=== PATIENT | male | born 1975 | race Caucasian/White ===

== ENCOUNTER 2019-04-29 07:57 | Emergency (ER) | payer BC ==
[2019-04-29] MEDS ORDERED: Sodium Chloride 0.9% 10 ML Syringe FLUSH PRN (08:05)
[2019-04-29] MEDS ORDERED: Sodium Chloride 0.9% 2.5 ML Syringe FLUSH PRN (08:05)
--- NOTE | 2019-04-29 08:10 | EDM.PDOC ---
ED HPI GENERAL MEDICAL PROBLEM - General Chief Complaint: Chest Pain Stated Complaint: UPPER RT SIDE HURTS Time Seen by Provider: 04/29/19 08:04 - History of Present Illness INITIAL COMMENTS - FREE TEXT/NARRATIVE: HISTORY AND PHYSICAL: History of present illness: Patient's 43-year-old male with history of hypercoagulable syndrome form of hyper fibrinogenemia who was first diagnosed when he had a CVA at age 18 he states he has subsequently had a pulmonary embolism although the details of this is her very vague was reported to occur approximately in 2010. Patient is compliant with his medications does include Coumadin. He presents today with concern of right-sided pleuritic chest pain he states is his lower right chest worse with deep inspiration he denies palpitations nausea vomiting diaphoresis or other complaints Review of systems: As per history of present illness and below otherwise all systems reviewed and negative. Past medical history: As per history of present illness and as reviewed below otherwise noncontributory. Surgical history: As per history of present illness and as reviewed below otherwise noncontributory. Social history: No reported history of drug or alcohol abuse. Family history: As per history of present illness and as reviewed below otherwise noncontributory. Physical exam: HEENT: Atraumatic, normocephalic, pupils reactive, negative for conjunctival pallor or scleral icterus, mucous membranes moist, throat clear, neck supple, nontender, trachea midline. Lungs: Clear to auscultation, breath sounds equal bilaterally, chest nontender. Heart: S1S2, regular, negative for clicks, rubs, or JVD. Abdomen: Soft, nondistended, nontender. Negative for masses or hepatosplenomegaly. Negative for costovertebral tenderness. Pelvis: Stable nontender. Genitourinary: Deferred. Rectal: Deferred. Extremities: Atraumatic, negative for cords or calf pain. Neurovascular unremarkable. Neuro: Awake, alert, oriented. Cranial nerves II through XII unremarkable. Cerebellum unremarkable. Motor and sensory unremarkable throughout. Exam nonfocal. Diagnostics: CBC CMP BNP troponin PT/INR EKG CTA chest Therapeutics: Saline 1 L bolus Impression: #1 history of coagulopathy #2 right sided pleuritic chest pain Definitive disposition and diagnosis as appropriate pending reevaluation and review of above. Right Lower Chest Pain Score (Numeric/FACES): 7 - Related Data Allergies Allergy/AdvReac Type Severity Reaction Status Date / Time No Known Allergies Allergy Verified 04/29/19 08:03 Home Meds: Home Meds Lacosamide [Vimpat] 100 mg PO DAILY 04/29/19 [History] Warfarin [Coumadin] 10 mg PO DAILY 04/29/19 [History] ED ROS GENERAL - Review of Systems Review Of Systems: ROS reveals no pertinent complaints other than HPI. ED EXAM, GENERAL - Physical Exam Exam: See Below (See dictation) Course - Vital Signs Text/Narrative:: Patient's emergency room records is been unremarkable he remains without cough fever shortness of breath or any other concern CT angiogram was negative for pulmonary embolism there was some ground glass consistent with possible chronic interstitial issues versus pulmonary edema/infection BNP was normal white count was normal and is now clinical statement for infection. THIS was discussed with patient will follow with his primary doctor Last Recorded V/S: Last Vital Signs Temp 36.5 C 04/29/19 08:01 Pulse 89 04/29/19 10:52 Resp 18 04/29/19 10:52 BP 124/78 04/29/19 09:25 Pulse Ox 92 L 04/29/19 10:52 - Orders/Labs/Meds Orders: Active Orders 24 hr Category Date Time Status Cardiac Monitoring [RC] . DIRECTED Care 04/29/19 08:04 Active EKG Documentation Completion [RC] STAT Care 04/29/19 08:04 Active Pulse Oximetry [RC] ASDIRECTED Care 04/29/19 08:04 Active Sodium Chloride 0.9% [Normal Saline] 1,000 ml Med 04/29/19 08:15 Active IV STAT Sodium Chloride 0.9% [Saline Flush] Med 04/29/19 08:05 Active 10 ml FLUSH ASDIRECTED PRN Sodium Chloride 0.9% [Saline Flush] Med 04/29/19 08:05 Active 2.5 ml FLUSH ASDIRECTED PRN Saline Lock Insert [OM.PC] Stat Oth 04/29/19 08:04 Ordered Medication Orders Sodium Chloride (Normal Saline) 1,000 mls @ 125 mls/hr IV STAT LAZARO Last Admin: 04/29/19 08:31 Dose: 125 mls/hr Sodium Chloride (Saline Flush) 10 ml FLUSH ASDIRECTED PRN PRN Reason: Keep Vein Open Last Admin: 04/29/19 08:32 Dose: 10 ml Sodium Chloride (Saline Flush) 2.5 ml FLUSH ASDIRECTED PRN PRN Reason: Keep Vein Open Last Admin: 04/29/19 08:32 Dose: 2.5 ml Labs: Laboratory Tests 04/29/19 04/29/19 04/29/19 Range/Units 08:14 08:14 08:14 WBC 7.10 (4.0-11.0) K/uL RBC 5.78 (4.50-5.90) M/uL Hgb 16.7 (13.0-17.0) g/dL Hct 48.9 (38.0-50.0) % MCV 84.6 (80.0-98.0) fL MCH 28.9 (27.0-32.0) pg MCHC 34.2 (31.0-37.0) g/dL RDW Std Deviation 40.4 (28.0-62.0) fl RDW Coeff of Chante 13 (11.0-15.0) % Plt Count 178 (150-400) K/uL MPV 10.50 (7.40-12.00) fL Neut % (Auto) 64.4 (48.0-80.0) % Lymph % (Auto) 29.3 (16.0-40.0) % [facility] % (Auto) 4.6 (0.0-15.0) % Eos % (Auto) 1.1 (0.0-7.0) % Baso % (Auto) 0.6 (0.0-1.5) % Neut # (Auto) 4.6 (1.4-5.7) K/uL Lymph # (Auto) 2.1 (0.6-2.4) K/uL [facility] # (Auto) 0.3 (0.0-0.8) K/uL Eos # (Auto) 0.1 (0.0-0.7) K/uL Baso # (Auto) 0.0 (0.0-0.1) K/uL Nucleated RBC % 0.0 /100WBC Nucleated RBCs # 0 K/uL INR 2.94 Sodium 138 (136-148) mmol/L Potassium 4.1 (3.5-5.1) mmol/L Chloride 105 (98-107) mmol/L Carbon Dioxide 23.7 (21.0-32.0) mmol/L BUN 15 (7.0-18.0) mg/dL Creatinine 1.1 (0.8-1.3) mg/dL Est Cr Clr Drug Dosing 102.42 mL/min Estimated GFR (MDRD) > 60.0 ml/min Glucose 151 H (74-106) mg/dL Calcium 8.7 (8.5-10.1) mg/dL Total Bilirubin 1.1 H (0.2-1.0) mg/dL AST 26 (15-37) IU/L ALT 35 (14-63) IU/L Alkaline Phosphatase 92 (46-116) U/L Troponin I < 0.050 (0.000-0.056) ng/mL B-Natriuretic Peptide (<100) PG/ML Total Protein 7.0 (6.4-8.2) g/dL Albumin 3.3 L (3.4-5.0) g/dL Globulin 3.7 (2.6-4.0) g/dL Albumin/Globulin Ratio 0.9 (0.9-1.6) 04/29/19 Range/Units 08:14 WBC (4.0-11.0) K/uL RBC (4.50-5.90) M/uL Hgb (13.0-17.0) g/dL Hct (38.0-50.0) % MCV (80.0-98.0) fL MCH (27.0-32.0) pg MCHC (31.0-37.0) g/dL RDW Std Deviation (28.0-62.0) fl RDW Coeff of Chante (11.0-15.0) % Plt Count (150-400) K/uL MPV (7.40-12.00) fL Neut % (Auto) (48.0-80.0) % Lymph % (Auto) (16.0-40.0) % [facility] % (Auto) (0.0-15.0) % Eos % (Auto) (0.0-7.0) % Baso % (Auto) (0.0-1.5) % Neut # (Auto) (1.4-5.7) K/uL Lymph # (Auto) (0.6-2.4) K/uL [facility] # (Auto) (0.0-0.8) K/uL Eos # (Auto) (0.0-0.7) K/uL Baso # (Auto) (0.0-0.1) K/uL Nucleated RBC % /100WBC Nucleated RBCs # K/uL INR Sodium (136-148) mmol/L Potassium (3.5-5.1) mmol/L Chloride (98-107) mmol/L Carbon Dioxide (21.0-32.0) mmol/L BUN (7.0-18.0) mg/dL Creatinine (0.8-1.3) mg/dL Est Cr Clr Drug Dosing mL/min Estimated GFR (MDRD) ml/min Glucose (74-106) mg/dL Calcium (8.5-10.1) mg/dL Total Bilirubin (0.2-1.0) mg/dL AST (15-37) IU/L ALT (14-63) IU/L Alkaline Phosphatase (46-116) U/L Troponin I (0.000-0.056) ng/mL B-Natriuretic Peptide 12 (<100) PG/ML Total Protein (6.4-8.2) g/dL Albumin (3.4-5.0) g/dL Globulin (2.6-4.0) g/dL Albumin/Globulin Ratio (0.9-1.6) Meds: Medications Generic Name Dose Route Start Last Admin Trade Name Freq PRN Reason Stop Dose Admin Sodium Chloride 1,000 mls @ 125 mls/hr 04/29/19 08:15 04/29/19 08:31 Normal Saline IV 125 mls/hr STAT LAZARO Administration Sodium Chloride 10 ml 04/29/19 08:05 04/29/19 08:32 Saline Flush FLUSH 10 ml ASDIRECTED PRN Administration Keep Vein Open Sodium Chloride 2.5 ml 04/29/19 08:05 04/29/19 08:32 Saline Flush FLUSH 2.5 ml ASDIRECTED PRN Administration Keep Vein Open Discontinued Medications Generic Name Dose Route Start Last Admin Trade Name Freq PRN Reason Stop Dose Admin Iopamidol 50 ml 04/29/19 09:22 04/29/19 09:25 Isovue Multipack-370 (76%) IVPUSH 04/29/19 09:23 50 ml ONETIME STA Administration Departure - Departure Time of Disposition: 11:03 Disposition: Home, Self-Care 01 Condition: Good Clinical Impression: Atypical chest pain - Discharge Information Referrals: PCP,None [Primary Care Provider] - Forms: ED Department Discharge Additional Instructions: The following information is given to patients seen in the emergency department who are being discharged to home. This information is to outline your options for follow-up care. We provide all patients seen in our emergency department with a follow-up referral. The need for follow-up, as well as the timing and circumstances, are variable depending upon the specifics of your emergency department visit. If you don't have a primary care physician on staff, we will provide you with a referral. We always advise you to contact your personal physician following an emergency department visit to inform them of the circumstance of the visit and for follow-up with them and/or the need for any referrals to a consulting specialist. The emergency department will also refer you to a specialist when appropriate. This referral assures that you have the opportunity for followup care with a specialist. All of these measure are taken in an effort to provide you with optimal care, which includes your followup. Under all circumstances we always encourage you to contact your private physician who remains a resource for coordinating your care. When calling for followup care, please make the office aware that this follow-up is from your recent emergency room visit. If for any reason you are refused follow-up, please contact the [facility] emergency department at and asked to speak to the emergency department charge nurse. Current medications follow-up primary medical doctor return as needed as discussed - My Orders Last 24 Hours: My Active Orders 04/29/19 08:04 Cardiac Monitoring [RC] . DIRECTED EKG Documentation Completion [RC] STAT Pulse Oximetry [RC] ASDIRECTED Saline Lock Insert [OM.PC] Stat 04/29/19 08:05 Sodium Chloride 0.9% [Saline Flush] 10 ml FLUSH ASDIRECTED PRN Sodium Chloride 0.9% [Saline Flush] 2.5 ml FLUSH ASDIRECTED PRN 04/29/19 08:15 Sodium Chloride 0.9% [Normal Saline] 1,000 ml IV STAT - Assessment/Plan Last 24 Hours: My Active Orders 04/29/19 08:04 Cardiac Monitoring [RC] . DIRECTED EKG Documentation Completion [RC] STAT Pulse Oximetry [RC] ASDIRECTED Saline Lock Insert [OM.PC] Stat 04/29/19 08:05 Sodium Chloride 0.9% [Saline Flush] 10 ml FLUSH ASDIRECTED PRN Sodium Chloride 0.9% [Saline Flush] 2.5 ml FLUSH ASDIRECTED PRN 04/29/19 08:15 Sodium Chloride 0.9% [Normal Saline] 1,000 ml IV STAT
[2019-04-29] MEDS ORDERED: Sodium Chloride 0.9% 1,000 ML IV SCH (08:15)
[2019-04-29 09:01] LABS: BLOOD UREA NITROGEN,BUN 15 mg/dL (7.0-18.0); CARBON DIOXIDE,CO2 23.7 mmol/L (21.0-32.0); CHLORIDE,CL 105 mmol/L (98-107); GLUCOSE RANDOM 151 mg/dL (74-106); POTASSIUM,K 4.1 mmol/L (3.5-5.1); SODIUM,NA 138 mmol/L (136-148)
[2019-04-29] MEDS ORDERED: Iopamidol 755 MG/ML 500 ML Multipack Bottle IVPUSH STA (09:22)
--- NOTE | 2019-04-29 10:21 | CT ---
INDICATION: Right or stabbing chest pain for 2 hours. History of blood clots. COMPARISON: 10/22/2013. TECHNIQUE: CT of the chest angiography, PE protocol. 50 cc of Isovue-370 was administered. FINDINGS: No pathologically enlarged lymph nodes identified in the chest. No pericardial effusion. Coronary artery calcifications. Left ventricular apex calcification and pericardial calcification is similar to prior examination. Imaged portion of the upper abdomen is unremarkable. No filling defect to indicate acute PE. Mild diffuse ground-glass opacities. No pleural effusion or pneumothorax. No suspicious pulmonary nodule or mass. Central airways are patent. Median sternotomy hardware. IMPRESSION: 1. No evidence of acute PE. 2. Diffuse ground-glass opacities which could be due to infection/inflammation. Edema is another differential consideration. 3. Stable left ventricular apex calcification and pericardial calcification. Please note that all CT scans at this facility use dose modulation, iterative reconstruction, and/or weight-based dosing when appropriate to reduce radiation dose to as low as reasonably achievable. Dictated by Ronald Gee MD @ Apr 29 2019 10:06AM Signed by Dr. Ronald Gee @ Apr 29 2019 10:20AM
== END 2019-04-29 11:37 | disposition home or self-care (01) ==
LOC: MW.ED 07:57
DX: R07.81 Pleurodynia (principal); Z86.73 Personal history of transient ischemic attack (TIA), and cerebral infarction without residual deficits; Z86.711 Personal history of pulmonary embolism; Z79.01 Long term (current) use of anticoagulants
CPT/HCPCS: 36415; 71275; 80053; 83880; 84484; 85025; 85610; 93005; 96360; 96361; 99285; J7040; Q9967; 99284

== ENCOUNTER 2019-12-29 13:31 | Emergency (ER) | payer BC, OTHER ==
--- NOTE | 2019-12-29 13:53 | EDM.PDOC ---
ED HPI GENERAL MEDICAL PROBLEM - General Chief Complaint: Lower Extremity Injury/Pain Stated Complaint: PT PULLED MUSCLE IN R LEG. HAS CLOTTING DISORDER Time Seen by Provider: 12/29/19 13:51 Source of Information: Reports: Patient History Limitations: Reports: No Limitations - History of Present Illness INITIAL COMMENTS - FREE TEXT/NARRATIVE: HISTORY AND PHYSICAL: History of present illness: Patient is a 44-year-old male presents the ED with concern of a blood clot in his leg. Patient states that he has a clotting disorder and history of stroke and PE on Coumadin. He states that 2 days ago he strained his hamstring while playing softball. He states that he is having pain behind his right knee and that he is concerned that it could be a clot. He reports some swelling in the right leg but that is chronic and not worsening. He denies any chest pain, shortness of breath, fevers, chills, nausea, vomiting, abdominal pain. Review of systems: As per history of present illness and below otherwise all systems reviewed and negative. Past medical history: As per history of present illness and as reviewed below otherwise noncontributory. Surgical history: As per history of present illness and as reviewed below otherwise noncontributory. Social history: No reported history of drug or alcohol abuse. Family history: As per history of present illness and as reviewed below otherwise noncontributory. Physical exam: General: Patient sitting comfortably in no acute distress and nontoxic appearing HEENT: Atraumatic, normocephalic, pupils reactive, negative for conjunctival pallor or scleral icterus, mucous membranes moist, throat clear, neck supple, nontender, trachea midline. No meningeal signs. Lungs: Clear to auscultation, breath sounds equal bilaterally, chest nontender. Heart: S1S2, regular, negative for clicks, rubs, or overt murmur. Abdomen: Soft, nondistended, nontender. Negative for masses or hepatosplenomegaly. Negative for costovertebral tenderness. No rigidity, rebound , guarding. Pelvis: Stable nontender. Genitourinary: Deferred. Rectal: Deferred. Extremities: Atraumatic, negative for cords or calf pain. Neurovascular unremarkable. Neuro: Awake, alert, oriented. Cranial nerves II through XII unremarkable. Cerebellum unremarkable. Motor and sensory unremarkable throughout. Exam nonfocal. Notes: Discussed with patient that INR is subtherapeutic at 1.83. He states he did recently miss a dose of his Coumadin. Advised follow up with PCP for recheck. Return to ED if new or worsening symptoms. Diagnostics: Right lower extremity venous Doppler ultrasound, PT/INR Therapeutics: none Prescriptions: none Impression: Right leg injury Plan: Apply heat to the area and take Tylenol as instructed Follow-up with primary care provider Return to ED as needed as discussed Definitive disposition and diagnosis as appropriate pending reevaluation and review of above. right lower extremity Pain Score (Numeric/FACES): 9 - Related Data Allergies Allergy/AdvReac Type Severity Reaction Status Date / Time No Known Allergies Allergy Verified 12/29/19 13:44 Home Meds: Home Meds Lacosamide [Vimpat] 100 mg PO DAILY 04/29/19 [History] Warfarin [Coumadin] 10 mg PO DAILY 04/29/19 [History] Past Medical History Cardiovascular History: Reports: Blood Clots/VTE/DVT Neurological History: Reports: CVA Hematologic History: Reports: Other (See Below) Other Hematologic History: dysfibrinogenemia - Infectious Disease History Infectious Disease History: Reports: None - Past Surgical History Cardiovascular Surgical History: Reports: Other (See Below) Other Cardiovascular Surgeries/Procedures: clot retrieval Social & Family History - Family History Family Medical History: Noncontributory - Tobacco Use Years of Tobacco use: 27 Packs/Tins Daily: 1 - Caffeine Use Caffeine Use: Reports: Other Other Caffeine Use: pre-workout - Recreational Drug Use Recreational Drug Use: No Review of Systems - Review of Systems Review Of Systems: Comprehensive ROS is negative, except as noted in HPI. ED EXAM, GENERAL - Physical Exam Exam: See Below (See dictation) Course - Vital Signs Last Recorded V/S: Last Vital Signs Temp 97.8 F 12/29/19 13:45 Pulse 102 H 12/29/19 13:45 Resp 18 12/29/19 13:45 BP 143/88 H 12/29/19 13:45 Pulse Ox 95 12/29/19 13:45 - Orders/Labs/Meds Labs: Laboratory Tests 12/29/19 Range/Units 14:02 INR 1.83 Departure - Departure Time of Disposition: 15:46 Disposition: Home, Self-Care 01 Condition: Good Clinical Impression: Right leg injury - Discharge Information Referrals: PCP,None [Primary Care Provider] - Forms: ED Department Discharge Additional Instructions: The following information is given to patients seen in the emergency department who are being discharged to home. This information is to outline your options for follow-up care. We provide all patients seen in our emergency department with a follow-up referral. The need for follow-up, as well as the timing and circumstances, are variable depending upon the specifics of your emergency department visit. If you don't have a primary care physician on staff, we will provide you with a referral. We always advise you to contact your personal physician following an emergency department visit to inform them of the circumstance of the visit and for follow-up with them and/or the need for any referrals to a consulting specialist. The emergency department will also refer you to a specialist when appropriate. This referral assures that you have the opportunity for follow-up care with a specialist. All of these measure are taken in an effort to provide you with optimal care, which includes your follow-up. Under all circumstances we always encourage you to contact your private physician who remains a resource for coordinating your care. When calling for follow-up care, please make the office aware that this follow-up is from your recent emergency room visit. If for any reason you are refused follow-up, please contact the [facility] Emergency Department at and asked to speak to the emergency department charge nurse. [facility] [address] [place] [address] [place] [address] Apply heat to the area and take Tylenol as instructed Follow-up with primary care provider Return to ED as needed as discussed Sepsis Event Note - Evaluation Sepsis Screening Result: No Definite Risk - Focused Exam Vital Signs: Vital Signs Temp Pulse Resp BP Pulse Ox 12/29/19 13:45 97.8 F 102 H 18 143/88 H 95 Date Exam was Performed: 12/29/19 Time Exam was Performed: 15:48
--- NOTE | 2019-12-29 15:41 | US ---
INDICATION: Pulled a muscle right leg. History of clotting disorder. TECHNIQUE: Ultrasound venous duplex lower right extremity. Compression venous exam was performed using mckeon-scale, color Doppler, and spectral Doppler imaging. COMPARISON: None. FINDINGS: Sonographic imaging demonstrates the right common femoral, deep femoral, superficial femoral, popliteal, posterior tibial and peroneal veins to be fully compressible with normal color Doppler blood flow. IMPRESSION: No sign of deep venous thrombosis. Dictated by Charo Gee MD @ Dec 29 2019 3:34PM Signed by Dr. Charo Gee @ Dec 29 2019 3:40PM
== END 2019-12-29 15:58 | disposition home or self-care (01) ==
LOC: MW.ED 13:31
DX: S89.91XA Unspecified injury of right lower leg, initial encounter (principal); F17.210 Nicotine dependence, cigarettes, uncomplicated; Z79.01 Long term (current) use of anticoagulants; Z86.73 Personal history of transient ischemic attack (TIA), and cerebral infarction without residual deficits; Z86.711 Personal history of pulmonary embolism; Z79.899 Other long term (current) drug therapy; Z86.718 Personal history of other venous thrombosis and embolism; X58.XXXA Exposure to other specified factors, initial encounter; Y93.64 Activity, baseball
CPT/HCPCS: 36415; 85610; 93971-26-RT; 93971-RT; 99282; 99284-25

== ENCOUNTER 2021-03-03 15:58 | Emergency (ER) | payer BC, OTHER ==
[2021-03-03 18:02] LABS: BLOOD UREA NITROGEN,BUN 14 mg/dL (7.0-18.0); CARBON DIOXIDE,CO2 30.4 mmol/L (21.0-32.0); CHLORIDE,CL 107 mmol/L (98-107); GLUCOSE RANDOM 111 mg/dL (74-106); POTASSIUM,K 4.1 mmol/L (3.5-5.1); SODIUM,NA 142 mmol/L (136-148)
--- NOTE | 2021-03-03 18:44 | CR ---
Indication: Hypoxia Technique: Chest 1 view Comparison: Chest CT April 29, 2019 Findings/Impression: Status post median sternotomy. Normal cardiac size. Normal pulmonary vasculature. No focal infiltrate, effusion, or pneumothorax. No acute osseous abnormality. Dictated by Nola Tang MD @ 03/03/2021 6:43:[address] Nola Tang @ Mar 03 2021 6:43PM
[2021-03-03] MEDS ORDERED: Phytonadione 5 MG Tab PO ONE (18:56)
--- NOTE | 2021-03-03 19:03 | US ---
CLINICAL HISTORY: History of multiple blood clots bruising TECHNIQUE: A compression venous ultrasound exam was performed of the right upper extremity using mckeon-scale imaging, color Doppler and spectral Doppler analysis. FINDINGS: Sonographic imaging of the right upper r extremity demonstrates normal compressibility and color Doppler venous blood flow within the right axillary subclavian brachial cephalic basilic, ulnar and radial veins. No evidence for deep venous thrombus. Edema in the area of bruising along the medial arm. IMPRESSION: No evidence of deep vein thrombosis within the right upper extremity. Dictated by Rosanna Rivers MD @ 03/03/2021 7:03:[address] Rosanna Rivers @ Mar 03 2021 7:03PM
--- NOTE | 2021-03-03 19:15 | EDM.PDOC ---
ED HPI GENERAL MEDICAL PROBLEM - General Chief Complaint: General Stated Complaint: SWOLLEN ELBOW, BRUISING Time Seen by Provider: 03/03/21 17:25 - History of Present Illness INITIAL COMMENTS - FREE TEXT/NARRATIVE: Patient presents the emergency department complaining of swelling and discomfort in his right arm. Patient had an IV placed for a routine blood check 6 days ago and has swelling and bruising that is increased. He now has tenderness in his elbow and increased tightness to the right forearm. There is no numbness tingling or weakness. 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 Patient has a history of a clotting disorder. Patient has been compliant with his medications. No chest pain or shortness of breath. No fevers. Mild discomfort right arm Pain Score (Numeric/FACES): 6 - Related Data Allergies Allergy/AdvReac Type Severity Reaction Status Date / Time No Known Allergies Allergy Verified 03/03/21 16:06 Home Meds: Home Meds Lacosamide [Vimpat] 100 mg PO DAILY 04/29/19 [History] Warfarin [Coumadin] 10 mg PO DAILY 04/29/19 [History] Past Medical History Cardiovascular History: Reports: Blood Clots/VTE/DVT Neurological History: Reports: CVA Hematologic History: Reports: Other (See Below) Other Hematologic History: dysfibrinogenemia - Infectious Disease History Infectious Disease History: Reports: None - Past Surgical History Cardiovascular Surgical History: Reports: Other (See Below) Other Cardiovascular Surgeries/Procedures: clot retrieval Other Musculoskeletal Surgeries/Procedures:: foot surgery, knee scope Social & Family History - Family History Family Medical History: No Pertinent Family History - Caffeine Use Caffeine Use: Reports: Other Other Caffeine Use: pre-workout - Recreational Drug Use Recreational Drug Use: No ED ROS GENERAL - Review of Systems Review Of Systems: See Below Constitutional: Denies: Fever Respiratory: Denies: Shortness of Breath Cardiovascular: Denies: Chest Pain Musculoskeletal: Reports: Arm Pain Skin: Reports: Bruising Neurological: Denies: Numbness, Tingling ED EXAM, GENERAL - Physical Exam Exam: See Below Free Text/Narrative:: CONSTITUTIONAL: well appearing in no acute distress SKIN: Oozing throughout the right forearm. There is evidence of [place]it[place] to the liquid on bursa HENT: Normocephalic, atraumatic, NECK: normal range of motion PULMONARY: normal chest rise and fall, no respiratory distress or stridor NEUROLOGIC: normal speech, moves all extremities, grossly non-focal MUSCULOSKELETAL: Patient has no bony tenderness. The right radial pulses intact. Cap refill less than 2 seconds. Sensorimotor function intact PSYCHIATRIC: normal mood and affect Course - Vital Signs Text/Narrative:: Differential Diagnosis: Over anticoagulation, DVT, arterial injury, DVT with PE, cellulitis, musculoskeletal injury, other Presents to the emergency department as outlined above. Patient has an elevated INR at 4.13. In the setting of recent blood draw he likely has continued venous bleeding. There is no pulsatile mass that is noted, there are no hard signs of arterial injury. The forearm at its thickest point is 14 inches. This was remeasured later in the ED course and unchanged. Distally the right upper extremity is neurovascularly intact. Patient is instructed to hold 2 doses of his Coumadin. 2.5 mg orally of vitamin K was given and the patient will return on Monday for reevaluation of INR and to see how his arm is doing and will be given return precautions. Patient also has some evidence of bleeding into the olecranon bursa. I do not want to put a needle in the area that is bleeding since the patient's INR is still elevated. A compression dressing was placed over the forearm and olecranon bursa and when the patient's arm is reevaluated at there is still significant blood accumulation then consideration on Monday can be given to aspiration of this area. Last Recorded V/S: Last Vital Signs Temp 36.8 C 03/03/21 16:07 Pulse 91 03/03/21 20:22 Resp 16 03/03/21 20:22 BP 140/84 03/03/21 20:22 Pulse Ox 95 03/03/21 20:22 - Orders/Labs/Meds Labs: Laboratory Tests 03/03/21 03/03/21 03/03/21 Range/Units 17:25 17:25 17:25 WBC 9.11 (4.0-11.0) K/uL RBC 5.53 (4.50-5.90) M/uL Hgb 16.4 (13.0-17.0) g/dL Hct 46.9 (38.0-50.0) % MCV 84.8 (80.0-98.0) fL MCH 29.7 (27.0-32.0) pg MCHC 35.0 (31.0-37.0) g/dL RDW Std Deviation 40.9 (28.0-62.0) fl RDW Coeff of Chante 13 (11.0-15.0) % Plt Count 206 (150-400) K/uL MPV 10.50 (7.40-12.00) fL Neut % (Auto) 66.5 (48.0-80.0) % Lymph % (Auto) 24.4 (16.0-40.0) % [place] % (Auto) 7.4 (0.0-15.0) % Eos % (Auto) 1.3 (0.0-7.0) % Baso % (Auto) 0.4 (0.0-1.5) % Neut # (Auto) 6.1 H (1.4-5.7) K/uL Lymph # (Auto) 2.2 (0.6-2.4) K/uL [place] # (Auto) 0.7 (0.0-0.8) K/uL Eos # (Auto) 0.1 (0.0-0.7) K/uL Baso # (Auto) 0.0 (0.0-0.1) K/uL Nucleated RBC % 0.0 /100WBC Nucleated RBCs # 0 K/uL INR 4.13 APTT (18.6-31.3) SEC D-Dimer, Quantitative (0.0-0.50) mg/L FEU Sodium 142 (136-148) mmol/L Potassium 4.1 (3.5-5.1) mmol/L Chloride 107 (98-107) mmol/L Carbon Dioxide 30.4 (21.0-32.0) mmol/L BUN 14 (7.0-18.0) mg/dL Creatinine 1.1 (0.8-1.3) mg/dL Est Cr Clr Drug Dosing 100.29 mL/min Estimated GFR (MDRD) > 60.0 ml/min Glucose 111 H (74-106) mg/dL Calcium 8.2 L (8.5-10.1) mg/dL Total Bilirubin 0.7 (0.2-1.0) mg/dL AST 24 (15-37) IU/L ALT 39 (14-63) IU/L Alkaline Phosphatase 128 H (46-116) U/L Total Protein 6.7 (6.4-8.2) g/dL Albumin 3.4 (3.4-5.0) g/dL Globulin 3.3 (2.6-4.0) g/dL Albumin/Globulin Ratio 1.0 (0.9-1.6) 03/03/21 03/03/21 Range/Units 17:25 17:25 WBC (4.0-11.0) K/uL RBC (4.50-5.90) M/uL Hgb (13.0-17.0) g/dL Hct (38.0-50.0) % MCV (80.0-98.0) fL MCH (27.0-32.0) pg MCHC (31.0-37.0) g/dL RDW Std Deviation (28.0-62.0) fl RDW Coeff of Chante (11.0-15.0) % Plt Count (150-400) K/uL MPV (7.40-12.00) fL Neut % (Auto) (48.0-80.0) % Lymph % (Auto) (16.0-40.0) % [place] % (Auto) (0.0-15.0) % Eos % (Auto) (0.0-7.0) % Baso % (Auto) (0.0-1.5) % Neut # (Auto) (1.4-5.7) K/uL Lymph # (Auto) (0.6-2.4) K/uL [place] # (Auto) (0.0-0.8) K/uL Eos # (Auto) (0.0-0.7) K/uL Baso # (Auto) (0.0-0.1) K/uL Nucleated RBC % /100WBC Nucleated RBCs # K/uL INR APTT 38.1 H (18.6-31.3) SEC D-Dimer, Quantitative < 0.19 (0.0-0.50) mg/L FEU Sodium (136-148) mmol/L Potassium (3.5-5.1) mmol/L Chloride (98-107) mmol/L Carbon Dioxide (21.0-32.0) mmol/L BUN (7.0-18.0) mg/dL Creatinine (0.8-1.3) mg/dL Est Cr Clr Drug Dosing mL/min Estimated GFR (MDRD) ml/min Glucose (74-106) mg/dL Calcium (8.5-10.1) mg/dL Total Bilirubin (0.2-1.0) mg/dL AST (15-37) IU/L ALT (14-63) IU/L Alkaline Phosphatase (46-116) U/L Total Protein (6.4-8.2) g/dL Albumin (3.4-5.0) g/dL Globulin (2.6-4.0) g/dL Albumin/Globulin Ratio (0.9-1.6) Meds: Medications Discontinued Medications Generic Name Dose Route Start Last Admin Trade Name Freq PRN Reason Stop Dose Admin Phytonadione 2.5 mg 03/03/21 18:56 03/03/21 20:16 Phytonadione 5 Mg Tab PO 03/03/21 18:57 Not Given ONETIME ONE Phytonadione 2.5 mg 03/03/21 19:55 03/03/21 20:17 Phytonadione 10 Mg/1 Ml Amp PO 03/03/21 20:25 2.5 mg NOW ONE Administration Departure - Departure Time of Disposition: 19:06 Disposition: Home, Self-Care 01 Condition: Good Clinical Impression: Hematoma - Discharge Information Instructions: Bleeding Precautions When on Anticoagulant Therapy, Adult Referrals: PCP,None [Primary Care Provider] - Forms: ED Department Discharge Additional Instructions: Hold Coumadin dose tonight and tomorrow night. Return on Monday as discussed for reevaluation. Return sooner for numbness, weakness, fever, cold extremity, any change or worsening condition. The following information is given to patients seen in the emergency department who are being discharged to home. This information is to outline your options for follow-up care. We provide all patients seen in our emergency department with a follow-up referral. The need for follow-up, as well as the timing and circumstances, are variable depending upon the specifics of your emergency department visit. If you don't have a primary care physician on staff, we will provide you with a referral. We always advise you to contact your personal physician following an emergency department visit to inform them of the circumstance of the visit and for follow-up with them and/or the need for any referrals to a consulting specialist. The emergency department will also refer you to a specialist when appropriate. This referral assures that you have the opportunity for follow-up care with a specialist. All of these measure are taken in an effort to provide you with optimal care, which includes your follow-up. Primary care clinics in the area: [facility] [address] [address] [facility] [address] [place] [address] Under all circumstances we always encourage you to contact your private physician who remains a resource for coordinating your care. When calling for follow-up care, please make the office aware that this follow-up is from your recent emergency room visit. If for any reason you are refused follow-up, please contact the [facility] Emergency Department at and asked to speak to the emergency department charge nurse. Sepsis Event Note (ED) - Evaluation Sepsis Screening Result: No Definite Risk - Focused Exam Vital Signs: Vital Signs Pulse Resp BP Pulse Ox 03/03/21 20:22 91 16 140/84 95
== END 2021-03-03 20:19 | disposition home or self-care (01) ==
LOC: MW.ED 15:58
DX: M79.81 Nontraumatic hematoma of soft tissue (principal); R00.0 Tachycardia, unspecified; R79.1 Abnormal coagulation profile; Z86.718 Personal history of other venous thrombosis and embolism; Z79.01 Long term (current) use of anticoagulants; Z79.899 Other long term (current) drug therapy
CPT/HCPCS: 36415; 71045; 80053; 85025; 85379; 85610; 85730; 93005; 93971; 99284; J3430

== ENCOUNTER 2021-03-05 15:25 | Emergency (ER) | payer OTHER ==
--- NOTE | 2021-03-05 16:00 | EDM.PDOC ---
ED HPI GENERAL MEDICAL PROBLEM - General Chief Complaint: Upper Extremity Injury/Pain Stated Complaint: BLOOD WORK/ELBOW Time Seen by Provider: 03/05/21 15:27 - History of Present Illness INITIAL COMMENTS - FREE TEXT/NARRATIVE: Patient presents to the emergency department for follow-up. Patient was here with extensive bruising and swelling to his right arm after IV draw and had elevated INR. A small dose of vitamin K was given and patient held 2 doses of warfarin and we will recheck the arm today no increased pain. No numbness or weakness or tingling - Related Data Allergies Allergy/AdvReac Type Severity Reaction Status Date / Time No Known Allergies Allergy Verified 03/05/21 16:10 Home Meds: Home Meds Lacosamide [Vimpat] 100 mg PO DAILY 04/29/19 [History] Warfarin [Coumadin] 10 mg PO DAILY 04/29/19 [History] Past Medical History Cardiovascular History: Reports: Blood Clots/VTE/DVT Neurological History: Reports: CVA Hematologic History: Reports: Other (See Below) Other Hematologic History: dysfibrinogenemia - Infectious Disease History Infectious Disease History: Reports: None - Past Surgical History Cardiovascular Surgical History: Reports: Other (See Below) Other Cardiovascular Surgeries/Procedures: clot retrieval Other Musculoskeletal Surgeries/Procedures:: foot surgery, knee scope Social & Family History - Family History Family Medical History: No Pertinent Family History - Caffeine Use Caffeine Use: Reports: Other Other Caffeine Use: pre-workout Review of Systems - Review of Systems Review Of Systems: See Below Constitutional: Denies: Fever Musculoskeletal: Reports: Arm Pain Skin: Reports: Bruising ED EXAM, GENERAL - Physical Exam Exam: See Below Free Text/Narrative:: CONSTITUTIONAL: well appearing in no acute distress SKIN: Patient with bruising to the right arm similar to yesterday. The patient states that it looks like it tracked a little bit higher. This is not surprised because there was a compression dressing on. The arm itself overall looks improved. The circumference of the arm is 13-1/2 inches which is slightly less than when he was here couple of days ago. The olecranon bursal effusion is de creased in size but still present. Good strong radial pulse. Sensorimotor function intact. Cap refill less than 2 seconds and warm well perfused extremity. HENT: Normocephalic, atraumatic, NECK: normal range of motion PULMONARY: normal chest rise and fall, no respiratory distress or stridor NEUROLOGIC: normal speech, moves all extremities, grossly non-focal MUSCULOSKELETAL: No underlying bony tenderness PSYCHIATRIC: normal mood and affect ED TRAUMA EXTREMITY PROCEDURES - Additional/Other Procedure(s) Other (Free Text) Procedure(s): Aspiration of right olecranon bursa. Area sterilely prepped with Betadine. 5 cc of 1% lidocaine used to anesthetize the area. Approximately 5 cc of blood was aspirated. There is still felt like there was remaining residual hematoma. There was consideration for clotted blood. 6 cc of normal saline was introduced. After this an additional approximately 9 cc were aspirated out which were significantly bloody. There is still some remaining material in the olecranon bursa but no further blood was able to be aspirated. Patient tolerated the procedure well and there were no complications. Entire arm including olecranon bursa was compression wrapped after this. Course - Vital Signs Text/Narrative:: Patient presents as outlined above. Patient's INR is now 1.2. His arm swelling has significantly improved. The family is neurovascularly intact. The olecranon bursa was attempted to be aspirated. Some degree of jasiel blood was able to be aspirated but there is still some residual. Compression wrap replaced. Infectious precautions given. Worsening swelling or neurovascular precautions given. Patient instructed to take his Coumadin tonight as normal and then follow-up with the provider in order to maximize his Coumadin regimen Last Recorded V/S: Last Vital Signs Temp 37.1 C 03/05/21 16:11 Pulse 100 03/05/21 16:11 Resp 16 03/05/21 16:11 BP 144/94 H 03/05/21 16:11 Pulse Ox 96 03/05/21 16:11 - Orders/Labs/Meds Labs: Laboratory Tests 03/05/21 Range/Units 16:40 INR 1.20 Meds: Medications Discontinued Medications Generic Name Dose Route Start Last Admin Trade Name Kenny PRN Reason Stop Dose Admin Lidocaine HCl 5 ml 03/05/21 17:10 03/05/21 17:31 Lidocaine 1% 5 Ml Sdv INJECT 03/05/21 17:11 5 ml ONETIME ONE Administration Lidocaine HCl 5 ml 03/05/21 17:10 03/05/21 17:31 Lidocaine 1% 5 Ml Sdv INJECT 03/05/21 17:11 5 ml ONETIME ONE Administration Departure - Departure Time of Disposition: 17:39 Disposition: Home, Self-Care 01 Condition: Good Clinical Impression: Hematoma - Discharge Information Instructions: Bleeding Precautions When on Anticoagulant Therapy, Adult Referrals: PCP,None [Primary Care Provider] - Forms: ED Department Discharge Additional Instructions: Start your normal Coumadin dosing tonight. Follow-up with your primary care doctor in the next couple of days to optimize and work with your Coumadin medication regimens. Return for any fevers, increased swelling, numbness, tingling or weakness or cold extremity or any change or worsening condition. Return in 2 days for reevaluation if there is not significant improvement Sepsis Event Note (ED) - Focused Exam Vital Signs: Vital Signs Temp Pulse Resp BP Pulse Ox 03/05/21 16:11 37.1 C 100 16 144/94 H 96
== END 2021-03-05 18:19 | disposition home or self-care (01) ==
LOC: MW.ED 15:25
DX: M79.81 Nontraumatic hematoma of soft tissue (principal); Z79.01 Long term (current) use of anticoagulants; Z86.73 Personal history of transient ischemic attack (TIA), and cerebral infarction without residual deficits
CPT/HCPCS: 20605; 36415; 85610; 99283-25

== ENCOUNTER 2021-03-06 21:33 | Inpatient (IN) | payer OTHER ==
[2021-03-06] MEDS ORDERED: Sodium Chloride 0.9% 2.5 ML Syringe FLUSH PRN (21:54)
[2021-03-06] MEDS ORDERED: Sodium Chloride 0.9% 10 ML SDV IV PRN (21:54)
[2021-03-06] MEDS ORDERED: Sodium Chloride 0.9% 10 ML Syringe FLUSH PRN (21:54)
[2021-03-06] MEDS ORDERED: Iopamidol 755 Mg/ML 100 ML Bottle IVPUSH ONE (22:06)
[2021-03-06 22:41] LABS: BLOOD UREA NITROGEN,BUN 15 mg/dL (7.0-18.0); CARBON DIOXIDE,CO2 25.5 mmol/L (21.0-32.0); CHLORIDE,CL 106 mmol/L (98-107); GLUCOSE RANDOM 102 mg/dL (74-106); POTASSIUM,K 4.3 mmol/L (3.5-5.1); SODIUM,NA 140 mmol/L (136-148)
--- NOTE | 2021-03-06 22:41 | EDM.PDOC ---
ED HPI GENERAL MEDICAL PROBLEM - General Chief Complaint: Eye Problems Stated Complaint: HARD TIME SEEING Time Seen by Provider: 03/06/21 21:47 Source of Information: Reports: Patient - History of Present Illness INITIAL COMMENTS - FREE TEXT/NARRATIVE: Patient presents complaining of decreased loss of vision. The patient has a clotting disorder. Patient was in the emergency department over the last s everal days for over anticoagulation and swelling with discomfort and bruising to his right arm. Patient's INR was elevated and 2 doses of Coumadin were held and small dose of vitamin K was given. Patient states that over the last 2 days he has taken his full dose of warfarin. Patient denies any slurred speech or double vision or arm/leg numbness/weakness. Patient has some dull aching between his eyes but no jasiel headache. - Related Data Allergies Allergy/AdvReac Type Severity Reaction Status Date / Time No Known Allergies Allergy Verified 03/06/21 21:47 Home Meds: Home Meds Lacosamide [Vimpat] 100 mg PO DAILY 04/29/19 [History] Warfarin [Coumadin] 10 mg PO DAILY 04/29/19 [History] Past Medical History Cardiovascular History: Reports: Blood Clots/VTE/DVT Neurological History: Reports: CVA Hematologic History: Reports: Other (See Below) Other Hematologic History: dysfibrinogenemia - Infectious Disease History Infectious Disease History: Reports: None - Past Surgical History Cardiovascular Surgical History: Reports: Other (See Below) Other Cardiovascular Surgeries/Procedures: clot retrieval Other Musculoskeletal Surgeries/Procedures:: foot surgery, knee scope Social & Family History - Family History Family Medical History: No Pertinent Family History - Tobacco Use Tobacco Use Status *Q: Never Tobacco User - Caffeine Use Caffeine Use: Reports: Coffee Other Caffeine Use: pre-workout - Recreational Drug Use Recreational Drug Use: No ED ROS GENERAL - Review of Systems Review Of Systems: See Below Constitutional: Denies: Fever, Chills HEENT: Reports: Glasses Respiratory: Denies: Shortness of Breath Cardiovascular: Denies: Chest Pain Musculoskeletal: Reports: Arm Pain Skin: Reports: Bruising Neurological: Denies: Numbness, Tingling, Trouble Speaking ED EXAM GENERAL W FULL EYE - Physical Exam Exam: See Below Text/Narrative:: CONSTITUTIONAL: well appearing in no acute distress SKIN: Patient with bruising to the right arm consistent with prior presentations. It is 13-1/4 inches and slightly improved from the last time I saw him. The swelling at the olecranon bursa is still there but also improved. Is not erythematous or warm and does not exhibit signs of infection HENT: Normocephalic, atraumatic, PULMONARY: clear to ausculation bilaterally. No rales, rhonchi, wheezing CARDIOVASCULAR: regular rate, No murmur, rubs, or gallops GASTROINTESTINAL: soft, nondistended, nontender NEUROLOGIC: normal speech, II-XII intact. light touch/5/5 power equal and symmetric in upper and lower extremities without deficit MUSCULOSKELETAL: no gross deformities, atraumatic PSYCHIATRIC: normal mood and affect #1 Interpretation EKG Date: 03/06/21 Time: 22:40 EKG Interpretation Comments: 114, sinus tachycardia, nonspecific ST/T findings. QT prolongation Course - Vital Signs Text/Narrative:: Differential diagnosis: TIA, intracranial hemorrhage, amaurosis fugax, occipital infarct, retinal hemorrhage, vitreous hemorrhage, migraine headache, other. Patient presents to the emergency department with loss of vision. This was in both eyes initially. First the left eye improved and then the right eye improved such that were no longer any symptoms. Since both eyes were affected this argues towards a central [employer] problem rather than a primary ocular problem. Patient did have 2 doses of wharf RN that were withheld and a very small dose of vitamin K at 2.5 mg p.o. Patient when he presented was under anticoagulated. The patient's arm is still swollen but it is not getting larger. He continues to be neurovascularly intact. Patient is given a therapeutic dose of Lovenox to bridge until his Coumadin becomes re-therapeutic. My hope is that since the bleeding is stopped for couple of days and a compression dressing is applied that he will not have rebleeding into the arm. The risk versus benefit favors anticoagulation at this time in this patient with possible neuro symptoms. I did speak to neurology at [facility], Dr. Pinto to discuss the case. He concurs with work-up and management at this point. The patient will be admitted for neuro checks and continue treatment and management Last Recorded V/S: Last Vital Signs Temp 37.0 C 03/06/21 21:42 Pulse 98 03/07/21 00:24 Resp 15 03/07/21 00:24 BP 149/88 H 03/07/21 00:24 Pulse Ox 99 03/07/21 00:24 - Orders/Labs/Meds Orders: Active Orders 24 hr Category Date Time Status Admission Status [Patient Status] [ADT] Stat ADT 03/07/21 00:00 Active Blood Glucose Check, Bedside [RC] STAT Care 03/06/21 21:54 Active Cardiac Monitoring [RC] CONTINUOUS Care 03/06/21 21:54 Active Communication Order [RC] STAT Care 03/06/21 21:54 Active Height and Weight [RC] UPON Care 03/06/21 21:54 Active Visual Acuity [Vision Test] [RC] ASDIRECTED Care 03/06/21 21:56 Active Vital Signs [RC] Q2H Care 03/06/21 21:54 Active CORONAVIRUS COVID-19 CARLA [MOLEC] Stat Lab 03/07/21 00:52 Ordered INR,PT,PROTHROMBIN TIME [COAG] AM Lab 03/07/21 05:11 Ordered INR,PT,PROTHROMBIN TIME [COAG] AM Lab 03/08/21 05:11 Ordered INR,PT,PROTHROMBIN TIME [COAG] AM Lab 03/09/21 05:11 Ordered INR,PT,PROTHROMBIN TIME [COAG] AM Lab 03/10/21 05:11 Ordered Enoxaparin [Lovenox] Med 03/07/21 12:00 Active 130 mg SUBCUT Q12H Sodium Chloride 0.9% [Normal Saline] Med 03/06/21 21:54 Active 10 ml IV ASDIRECTED PRN Sodium Chloride 0.9% [Saline Flush] Med 03/06/21 21:54 Active 10 ml FLUSH ASDIRECTED PRN Sodium Chloride 0.9% [Saline Flush] Med 03/06/21 21:54 Active 2.5 ml FLUSH ASDIRECTED PRN Warfarin Dosing [Coumadin Ask] Med 03/07/21 09:00 Active 1 each PO DAILY Peripheral IV Insertion Adult [OM.PC] Stat Oth 03/06/21 21:54 Ordered Peripheral IV Insertion Adult [OM.PC] Stat Oth 03/06/21 21:54 Ordered Resuscitation Status Stat Resus Stat 03/06/21 21:54 Ordered Medication Orders Enoxaparin Sodium (Enoxaparin 100 Mg/1 Ml Syringe) 130 mg SUBCUT Q12H LAZARO Sodium Chloride (Sodium Chloride 0.9% 10 Ml Syringe) 10 ml FLUSH ASDIRECTED PRN PRN Reason: Keep Vein Open Sodium Chloride (Sodium Chloride 0.9% 2.5 Ml Syringe) 2.5 ml FLUSH ASDIRECTED PRN PRN Reason: Keep Vein Open Sodium Chloride (Sodium Chloride 0.9% 10 Ml Sdv) 10 ml IV ASDIRECTED PRN PRN Reason: IV Use Warfarin Sodium (Warfarin Ask Dosing) 1 each PO DAILY LAZARO Labs: Laboratory Tests 03/06/21 03/06/21 03/06/21 Range/Units 21:59 22:00 22:00 WBC 11.38 H (4.0-11.0) K/uL RBC 5.83 (4.50-5.90) M/uL Hgb 17.2 H (13.0-17.0) g/dL Hct 48.7 (38.0-50.0) % MCV 83.5 (80.0-98.0) fL MCH 29.5 (27.0-32.0) pg MCHC 35.3 (31.0-37.0) g/dL RDW Std Deviation 39.6 (28.0-62.0) fl RDW Coeff of Chante 13 (11.0-15.0) % Plt Count 211 (150-400) K/uL MPV 10.50 (7.40-12.00) fL Neut % (Auto) 67.8 (48.0-80.0) % Lymph % (Auto) 24.2 (16.0-40.0) % [place] % (Auto) 6.7 (0.0-15.0) % Eos % (Auto) 1.0 (0.0-7.0) % Baso % (Auto) 0.3 (0.0-1.5) % Neut # (Auto) 7.7 H (1.4-5.7) K/uL Lymph # (Auto) 2.8 H (0.6-2.4) K/uL [place] # (Auto) 0.8 (0.0-0.8) K/uL Eos # (Auto) 0.1 (0.0-0.7) K/uL Baso # (Auto) 0.0 (0.0-0.1) K/uL Nucleated RBC % 0.0 /100WBC Nucleated RBCs # 0 K/uL INR 1.17 APTT 23.4 (18.6-31.3) SEC Sodium (136-148) mmol/L Potassium (3.5-5.1) mmol/L Chloride (98-107) mmol/L Carbon Dioxide (21.0-32.0) mmol/L BUN (7.0-18.0) mg/dL Creatinine (0.8-1.3) mg/dL Est Cr Clr Drug Dosing mL/min Estimated GFR (MDRD) ml/min Glucose (74-106) mg/dL POC Glucose 81 (70-99) mg/dL Calcium (8.5-10.1) mg/dL Total Bilirubin (0.2-1.0) mg/dL AST (15-37) IU/L ALT (14-63) IU/L Alkaline Phosphatase (46-116) U/L Troponin I (0.000-0.056) ng/mL Total Protein (6.4-8.2) g/dL Albumin (3.4-5.0) g/dL Globulin (2.6-4.0) g/dL Albumin/Globulin Ratio (0.9-1.6) 03/06/21 Range/Units 22:00 WBC (4.0-11.0) K/uL RBC (4.50-5.90) M/uL Hgb (13.0-17.0) g/dL Hct (38.0-50.0) % MCV (80.0-98.0) fL MCH (27.0-32.0) pg MCHC (31.0-37.0) g/dL RDW Std Deviation (28.0-62.0) fl RDW Coeff of Chante (11.0-15.0) % Plt Count (150-400) K/uL MPV (7.40-12.00) fL Neut % (Auto) (48.0-80.0) % Lymph % (Auto) (16.0-40.0) % [place] % (Auto) (0.0-15.0) % Eos % (Auto) (0.0-7.0) % Baso % (Auto) (0.0-1.5) % Neut # (Auto) (1.4-5.7) K/uL Lymph # (Auto) (0.6-2.4) K/uL [place] # (Auto) (0.0-0.8) K/uL Eos # (Auto) (0.0-0.7) K/uL Baso # (Auto) (0.0-0.1) K/uL Nucleated RBC % /100WBC Nucleated RBCs # K/uL INR APTT (18.6-31.3) SEC Sodium 140 (136-148) mmol/L Potassium 4.3 (3.5-5.1) mmol/L Chloride 106 (98-107) mmol/L Carbon Dioxide 25.5 (21.0-32.0) mmol/L BUN 15 (7.0-18.0) mg/dL Creatinine 1.4 H (0.8-1.3) mg/dL Est Cr Clr Drug Dosing 78.80 mL/min Estimated GFR (MDRD) 54.6 ml/min Glucose 102 (74-106) mg/dL POC Glucose (70-99) mg/dL Calcium 8.9 (8.5-10.1) mg/dL Total Bilirubin 1.3 H (0.2-1.0) mg/dL AST 29 (15-37) IU/L ALT 50 (14-63) IU/L Alkaline Phosphatase 118 H (46-116) U/L Troponin I < 0.050 (0.000-0.056) ng/mL Total Protein 7.1 (6.4-8.2) g/dL Albumin 3.7 (3.4-5.0) g/dL Globulin 3.4 (2.6-4.0) g/dL Albumin/Globulin Ratio 1.1 (0.9-1.6) Meds: Medications Generic Name Dose Route Start Last Admin Trade Name Freq PRN Reason Stop Dose Admin Enoxaparin Sodium 130 mg 03/07/21 12:00 Enoxaparin 100 Mg/1 Ml Syringe SUBCUT Q12H LAZARO Sodium Chloride 10 ml 03/06/21 21:54 Sodium Chloride 0.9% 10 Ml Syringe FLUSH ASDIRECTED PRN Keep Vein Open Sodium Chloride 2.5 ml 03/06/21 21:54 Sodium Chloride 0.9% 2.5 Ml Syringe FLUSH ASDIRECTED PRN Keep Vein Open Sodium Chloride 10 ml 03/06/21 21:54 Sodium Chloride 0.9% 10 Ml Sdv IV ASDIRECTED PRN IV Use Warfarin Sodium 1 each 03/07/21 09:00 Warfarin Ask Dosing PO DAILY LAZARO Discontinued Medications Generic Name Dose Route Start Last Admin Trade Name Kenny PRN Reason Stop Dose Admin Enoxaparin Sodium 130 mg 03/06/21 23:58 03/07/21 00:12 Enoxaparin 150 Mg/1 Ml Syringe SUBCUT 03/06/21 23:59 130 mg ONETIME ONE Administration Sodium Chloride 500 mls @ 999 mls/hr 03/06/21 23:06 03/06/21 23:34 Normal Saline IV 03/06/21 23:36 999 mls/hr .BOLUS ONE Administration Iopamidol 100 ml 03/06/21 22:06 03/06/21 22:22 Iopamidol 755 Mg/Ml 100 Ml Bottle IVPUSH 03/06/21 22:07 100 ml ONETIME ONE Administration Departure - Departure Time of Disposition: 12:30 Disposition: Admitted As Inpatient 65 Condition: Good Clinical Impression: TIA (transient ischemic attack) - Discharge Information Referrals: PCP,None [Primary Care Provider] - Forms: ED Department Discharge Sepsis Event Note (ED) - Evaluation Sepsis Screening Result: No Definite Risk - Focused Exam Vital Signs: Vital Signs Temp Pulse Resp BP Pulse Ox 03/07/21 00:24 98 15 149/88 H 99 03/06/21 23:15 112 H 18 129/54 L 99 03/06/21 23:00 113 H 20 111/73 99 03/06/21 22:54 109 H 20 128/69 98 03/06/21 22:43 117 H 20 137/77 99 03/06/21 22:25 113 H 15 121/81 98 03/06/21 22:07 120 H 15 124/80 98 03/06/21 21:42 37.0 C 130 H 20 145/105 H 93 L - My Orders Last 24 Hours: My Active Orders 03/06/21 21:54 Blood Glucose Check, Bedside [RC] STAT Cardiac Monitoring [RC] CONTINUOUS Communication Order [RC] STAT Height and Weight [RC] UPON Vital Signs [RC] Q2H Sodium Chloride 0.9% [Normal Saline] 10 ml IV ASDIRECTED PRN Sodium Chloride 0.9% [Saline Flush] 10 ml FLUSH ASDIRECTED PRN Sodium Chloride 0.9% [Saline Flush] 2.5 ml FLUSH ASDIRECTED PRN Peripheral IV Insertion Adult [OM.PC] Stat Peripheral IV Insertion Adult [OM.PC] Stat Resuscitation Status Stat 03/06/21 21:56 Visual Acuity [Vision Test] [RC] ASDIRECTED 03/07/21 00:00 Admission Status [Patient Status] [ADT] Stat 03/07/21 00:52 CORONAVIRUS COVID-19 CARLA [MOLEC] Stat - Assessment/Plan Last 24 Hours: My Active Orders 03/06/21 21:54 Blood Glucose Check, Bedside [RC] STAT Cardiac Monitoring [RC] CONTINUOUS Communication Order [RC] STAT Height and Weight [RC] UPON Vital Signs [RC] Q2H Sodium Chloride 0.9% [Normal Saline] 10 ml IV ASDIRECTED PRN Sodium Chloride 0.9% [Saline Flush] 10 ml FLUSH ASDIRECTED PRN Sodium Chloride 0.9% [Saline Flush] 2.5 ml FLUSH ASDIRECTED PRN Peripheral IV Insertion Adult [OM.PC] Stat Peripheral IV Insertion Adult [OM.PC] Stat Resuscitation Status Stat 03/06/21 21:56 Visual Acuity [Vision Test] [RC] ASDIRECTED 03/07/21 00:00 Admission Status [Patient Status] [ADT] Stat 03/07/21 00:52 CORONAVIRUS COVID-19 CARLA [MOLEC] Stat
[2021-03-06] MEDS ORDERED: Sodium Chloride 0.9% 500 ML IV ONE (23:06)
--- NOTE | 2021-03-06 23:07 | CT ---
DATE: 03/06/2021. CLINICAL HISTORY: Patient with bilateral vision loss, history of stroke. TECHNIQUE: Standard helical CT image acquisition of the brain following by standard helical CT image acquisition through the head and neck after intravenous contrast bolus enhancement. Multiplanar reconstructed images performed on a separate workstation. COMPARISON: None available. FINDINGS: CT HEAD: There is no acute intracranial hemorrhage. No extra-axial collection, mass effect, or midline shift. Encephalomalacia within the left parietal, lateral temporal and insular cortex in keeping with a prior left MCA inferior trunk distribution infarction. There is resulting ex vacuo dilatation the left lateral ventricle. Patchy hypoattenuation within the white matter of both hemispheres likely reflects sequela of chronic small vessel ischemia. Ventricles are normal in size and morphology for patient age. The calvarium is unremarkable. The orbits are unremarkable. The paranasal sinuses are unremarkable. The mastoid air cells are unremarkable. The soft tissues are unremarkable. CT ANGIOGRAM HEAD AND NECK: The origins of the great vessels from the aortic arch are patent, noting direct origin of the left vertebral artery from the aortic arch. The origins of the right and left vertebral arteries are patent. The common carotid arteries are patent. No significant stenoses at the origins of the proximal internal carotid arteries by NASCET criteria. The more distal cervical segments of the internal carotid arteries are patent. The cervical segments of the vertebral arteries are patent. No intracranial proximal large vessel occlusion or flow-limiting luminal stenosis. The visualized lung apices are unremarkable. The thyroid gland is unremarkable. There are degenerative changes in the cervical spine. IMPRESSION: 1. No CT evidence of acute intracranial abnormality. 2. Encephalomalacia within the left parietal lobe, lateral temporal lobe, and insular cortex consistent with a prior left MCA inferior trunk distribution infarction. 3. No intracranial proximal large vessel occlusion or flow limiting luminal stenosis. 4. Patent cervical arterial vasculature without hemodynamically significant luminal stenosis. Please note that all CT scans at this facility use dose modulation, iterative reconstruction, and/or weight-based dosing when appropriate to reduce radiation dose to as low as reasonably achievable. Dictated by Onur West MD @ 03/07/2021 2:48:[address] Onur West @ Mar 07 2021 2:48PM
[2021-03-06] MEDS ORDERED: Enoxaparin 150 MG/1 ML Syringe SUBCUT ONE (23:58)
--- NOTE | 2021-03-07 00:09 | PCM.HP.2 ---
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 Four days ago patient was in the ED will large hematoma of right arm following a blood draw. His INR was 4. He was given compression bandage and 2.5 of vitamin K. His arm swelling and bruising has improved. CT head reports no acute findings but shows encephalomalacia of the left MCA distribution. 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 - Related Data Allergies/Adverse Reactions: Allergies Allergy/AdvReac Type Severity Reaction Status Date / Time No Known Allergies Allergy Verified 03/07/21 04:18 Home Medications: Home Meds Lacosamide [Vimpat] 100 mg PO DAILY 04/29/19 [History] Warfarin [Coumadin] 10 mg PO DAILY 04/29/19 [History] Past Medical History Cardiovascular History: Reports: Blood Clots/VTE/DVT Neurological History: Reports: CVA Hematologic History: Reports: Other (See Below) Other Hematologic History: dysfibrinogenemia - Infectious Disease History Infectious Disease History: Reports: None - Past Surgical History Cardiovascular Surgical History: Reports: Other (See Below) Other Cardiovascular Surgeries/Procedures: clot retrieval Other Musculoskeletal Surgeries/Procedures:: foot surgery, knee scope Social & Family History - Family History Family Medical History: No Pertinent Family History - Tobacco Use Tobacco Use Status *Q: Never Tobacco User - Caffeine Use Caffeine Use: Reports: Coffee Other Caffeine Use: pre-workout - Recreational Drug Use Recreational Drug Use: No H&P Review of Systems - Review of Systems: Review Of Systems: Comprehensive ROS is negative, except as noted in HPI. Exam - Exam Exam: See Below - Vital Signs Vital Signs: Last Vital Signs Temp 37.0 C 03/06/21 21:42 Pulse 109 H 03/06/21 22:54 Resp 20 03/06/21 22:54 BP 128/69 03/06/21 22:54 Pulse Ox 98 03/06/21 22:54 Weight: 127.006 kg - Exam General: Alert, Oriented HEENT: Mucosa Moist & [place] Neck: Supple Lungs: Clear to Auscultation, Normal Respiratory Effort Cardiovascular: Regular Rate, Regular Rhythm GI/Abdominal Exam: Normal Bowel Sounds, Soft, Non-Tender Extremities: Non-Tender, No Pedal Edema, Other (large echemosis of right arm extending from mid radial biceps to mid forarm) Skin: Warm, Dry, Intact Neurological: Cranial Nerves Intact, Strength Equal Bilateral. No: Focal Deficit - Patient Data Lab Results Last 24 hrs: Laboratory Results - last 24 hr 03/06/21 03/06/21 03/06/21 Range/Units 21:59 22:00 22:00 WBC 11.38 H (4.0-11.0) K/uL RBC 5.83 (4.50-5.90) M/uL Hgb 17.2 H (13.0-17.0) g/dL Hct 48.7 (38.0-50.0) % MCV 83.5 (80.0-98.0) fL MCH 29.5 (27.0-32.0) pg MCHC 35.3 (31.0-37.0) g/dL RDW Std Deviation 39.6 (28.0-62.0) fl RDW Coeff of Chante 13 (11.0-15.0) % Plt Count 211 (150-400) K/uL MPV 10.50 (7.40-12.00) fL Neut % (Auto) 67.8 (48.0-80.0) % Lymph % (Auto) 24.2 (16.0-40.0) % [place] % (Auto) 6.7 (0.0-15.0) % Eos % (Auto) 1.0 (0.0-7.0) % Baso % (Auto) 0.3 (0.0-1.5) % Neut # (Auto) 7.7 H (1.4-5.7) K/uL Lymph # (Auto) 2.8 H (0.6-2.4) K/uL [place] # (Auto) 0.8 (0.0-0.8) K/uL Eos # (Auto) 0.1 (0.0-0.7) K/uL Baso # (Auto) 0.0 (0.0-0.1) K/uL Nucleated RBC % 0.0 /100WBC Nucleated RBCs # 0 K/uL INR 1.17 APTT 23.4 (18.6-31.3) SEC Sodium (136-148) mmol/L Potassium (3.5-5.1) mmol/L Chloride (98-107) mmol/L Carbon Dioxide (21.0-32.0) mmol/L BUN (7.0-18.0) mg/dL Creatinine (0.8-1.3) mg/dL Est Cr Clr Drug Dosing mL/min Estimated GFR (MDRD) ml/min Glucose (74-106) mg/dL POC Glucose 81 (70-99) mg/dL Calcium (8.5-10.1) mg/dL Total Bilirubin (0.2-1.0) mg/dL AST (15-37) IU/L ALT (14-63) IU/L Alkaline Phosphatase (46-116) U/L Troponin I (0.000-0.056) ng/mL Total Protein (6.4-8.2) g/dL Albumin (3.4-5.0) g/dL Globulin (2.6-4.0) g/dL Albumin/Globulin Ratio (0.9-1.6) 03/06/21 Range/Units 22:00 WBC (4.0-11.0) K/uL RBC (4.50-5.90) M/uL Hgb (13.0-17.0) g/dL Hct (38.0-50.0) % MCV (80.0-98.0) fL MCH (27.0-32.0) pg MCHC (31.0-37.0) g/dL RDW Std Deviation (28.0-62.0) fl RDW Coeff of Chante (11.0-15.0) % Plt Count (150-400) K/uL MPV (7.40-12.00) fL Neut % (Auto) (48.0-80.0) % Lymph % (Auto) (16.0-40.0) % [place] % (Auto) (0.0-15.0) % Eos % (Auto) (0.0-7.0) % Baso % (Auto) (0.0-1.5) % Neut # (Auto) (1.4-5.7) K/uL Lymph # (Auto) (0.6-2.4) K/uL [place] # (Auto) (0.0-0.8) K/uL Eos # (Auto) (0.0-0.7) K/uL Baso # (Auto) (0.0-0.1) K/uL Nucleated RBC % /100WBC Nucleated RBCs # K/uL INR APTT (18.6-31.3) SEC Sodium 140 (136-148) mmol/L Potassium 4.3 (3.5-5.1) mmol/L Chloride 106 (98-107) mmol/L Carbon Dioxide 25.5 (21.0-32.0) mmol/L BUN 15 (7.0-18.0) mg/dL Creatinine 1.4 H (0.8-1.3) mg/dL Est Cr Clr Drug Dosing 78.80 mL/min Estimated GFR (MDRD) 54.6 ml/min Glucose 102 (74-106) mg/dL POC Glucose (70-99) mg/dL Calcium 8.9 (8.5-10.1) mg/dL Total Bilirubin 1.3 H (0.2-1.0) mg/dL AST 29 (15-37) IU/L ALT 50 (14-63) IU/L Alkaline Phosphatase 118 H (46-116) U/L Troponin I < 0.050 (0.000-0.056) ng/mL Total Protein 7.1 (6.4-8.2) g/dL Albumin 3.7 (3.4-5.0) g/dL Globulin 3.4 (2.6-4.0) g/dL Albumin/Globulin Ratio 1.1 (0.9-1.6) Result Diagrams: 03/07/21 06:20 03/07/21 06:20 Sepsis Event Note - Evaluation Sepsis Screening Result: No Definite Risk - Focused Exam Vital Signs: Vital Signs Temp Pulse Resp BP Pulse Ox 03/06/21 22:54 109 H 20 128/69 98 03/06/21 22:43 117 H 20 137/77 99 03/06/21 22:25 113 H 15 121/81 98 03/06/21 22:07 120 H 15 124/80 98 03/06/21 21:42 37.0 C 130 H 20 145/105 H 93 L Problem List Initiated/Reviewed/Updated: Yes Orders Last 24hrs: Active Orders 24 hr Category Date Time Status Admission Status [Patient Status] [ADT] Stat ADT 03/07/21 00:00 Active Blood Glucose Check, Bedside [RC] STAT Care 03/06/21 21:54 Active Cardiac Monitoring [RC] CONTINUOUS Care 03/06/21 21:54 Active Communication Order [RC] STAT Care 03/06/21 21:54 Active Height and Weight [RC] UPON Care 03/06/21 21:54 Active Visual Acuity [Vision Test] [RC] ASDIRECTED Care 03/06/21 21:56 Active Vital Signs [RC] Q15M Care 03/06/21 21:54 Active INR,PT,PROTHROMBIN TIME [COAG] AM Lab 03/07/21 05:11 Ordered INR,PT,PROTHROMBIN TIME [COAG] AM Lab 03/08/21 05:11 Ordered INR,PT,PROTHROMBIN TIME [COAG] AM Lab 03/09/21 05:11 Ordered INR,PT,PROTHROMBIN TIME [COAG] AM Lab 03/10/21 05:11 Ordered Enoxaparin [Lovenox] Med 03/07/21 12:00 Ordered 130 mg SUBCUT Q12H Sodium Chloride 0.9% [Normal Saline] Med 03/06/21 21:54 Active 10 ml IV ASDIRECTED PRN Sodium Chloride 0.9% [Saline Flush] Med 03/06/21 21:54 Active 10 ml FLUSH ASDIRECTED PRN Sodium Chloride 0.9% [Saline Flush] Med 03/06/21 21:54 Active 2.5 ml FLUSH ASDIRECTED PRN Warfarin Dosing [Coumadin Ask] Med 03/07/21 09:00 Ordered 1 each PO DAILY Peripheral IV Insertion Adult [OM.PC] Stat Oth 03/06/21 21:54 Ordered Peripheral IV Insertion Adult [OM.PC] Stat Oth 03/06/21 21:54 Ordered Resuscitation Status Stat Resus Stat 03/06/21 21:54 Ordered Medication Orders Enoxaparin Sodium (Enoxaparin 100 Mg/1 Ml Syringe) 130 mg SUBCUT Q12H LAZARO Sodium Chloride (Sodium Chloride 0.9% 10 Ml Syringe) 10 ml FLUSH ASDIRECTED PRN PRN Reason: Keep Vein Open Sodium Chloride (Sodium Chloride 0.9% 2.5 Ml Syringe) 2.5 ml FLUSH ASDIRECTED PRN PRN Reason: Keep Vein Open Sodium Chloride (Sodium Chloride 0.9% 10 Ml Sdv) 10 ml IV ASDIRECTED PRN PRN Reason: IV Use Warfarin Sodium (Warfarin Ask Dosing) 1 each PO DAILY LAZARO Assessment/Plan Comment:: 45 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 We will admitted for TIA. Patient should be bridged with lovenox while waiting for coumadin to be theraputic. Right arm hemotoma appears to be resolving, will monitor for rebleed.
[2021-03-07 07:02] LABS: BLOOD UREA NITROGEN,BUN 13 mg/dL (7.0-18.0); CARBON DIOXIDE,CO2 29.1 mmol/L (21.0-32.0); CHLORIDE,CL 108 mmol/L (98-107); GLUCOSE RANDOM 104 mg/dL (74-106); SODIUM,NA 141 mmol/L (136-148)
[2021-03-07] MEDS ORDERED: Enoxaparin 100 MG/1 ML Syringe SUBCUT SCH (12:00)
--- NOTE | 2021-03-07 12:52 | PCM.PN ---
- General Info Date of Service: 03/07/21 - Review of Systems Systems Review Comment:: vision is normal, no arm pain or swelling. - Patient Data Vitals - Most Recent: Last Vital Signs Temp 36.6 C 03/07/21 08:00 Pulse 83 03/07/21 08:00 Resp 16 03/07/21 08:00 BP 124/94 H 03/07/21 08:00 Pulse Ox 98 03/07/21 08:00 Weight - Most Recent: 130.362 kg Lab Results Last 24 Hours: Laboratory Results - last 24 hr 03/06/21 03/06/21 03/06/21 Range/Units 21:59 22:00 22:00 WBC 11.38 H (4.0-11.0) K/uL RBC 5.83 (4.50-5.90) M/uL Hgb 17.2 H (13.0-17.0) g/dL Hct 48.7 (38.0-50.0) % MCV 83.5 (80.0-98.0) fL MCH 29.5 (27.0-32.0) pg MCHC 35.3 (31.0-37.0) g/dL RDW Std Deviation 39.6 (28.0-62.0) fl RDW Coeff of Chante 13 (11.0-15.0) % Plt Count 211 (150-400) K/uL MPV 10.50 (7.40-12.00) fL Neut % (Auto) 67.8 (48.0-80.0) % Lymph % (Auto) 24.2 (16.0-40.0) % [place] % (Auto) 6.7 (0.0-15.0) % Eos % (Auto) 1.0 (0.0-7.0) % Baso % (Auto) 0.3 (0.0-1.5) % Neut # (Auto) 7.7 H (1.4-5.7) K/uL Lymph # (Auto) 2.8 H (0.6-2.4) K/uL [place] # (Auto) 0.8 (0.0-0.8) K/uL Eos # (Auto) 0.1 (0.0-0.7) K/uL Baso # (Auto) 0.0 (0.0-0.1) K/uL Nucleated RBC % 0.0 /100WBC Nucleated RBCs # 0 K/uL INR 1.17 APTT 23.4 (18.6-31.3) SEC Sodium (136-148) mmol/L Potassium (3.5-5.1) mmol/L Chloride (98-107) mmol/L Carbon Dioxide (21.0-32.0) mmol/L BUN (7.0-18.0) mg/dL Creatinine (0.8-1.3) mg/dL Est Cr Clr Drug Dosing mL/min Estimated GFR (MDRD) ml/min Glucose (74-106) mg/dL POC Glucose 81 (70-99) mg/dL Calcium (8.5-10.1) mg/dL Total Bilirubin (0.2-1.0) mg/dL AST (15-37) IU/L ALT (14-63) IU/L Alkaline Phosphatase (46-116) U/L Troponin I (0.000-0.056) ng/mL Total Protein (6.4-8.2) g/dL Albumin (3.4-5.0) g/dL Globulin (2.6-4.0) g/dL Albumin/Globulin Ratio (0.9-1.6) SARS-CoV-2 RNA (CARLA) (NEGATIVE) 03/06/21 03/07/21 03/07/21 Range/Units 22:00 01:50 06:20 WBC (4.0-11.0) K/uL RBC (4.50-5.90) M/uL Hgb (13.0-17.0) g/dL Hct (38.0-50.0) % MCV (80.0-98.0) fL MCH (27.0-32.0) pg MCHC (31.0-37.0) g/dL RDW Std Deviation (28.0-62.0) fl RDW Coeff of Chante (11.0-15.0) % Plt Count (150-400) K/uL MPV (7.40-12.00) fL Neut % (Auto) (48.0-80.0) % Lymph % (Auto) (16.0-40.0) % [place] % (Auto) (0.0-15.0) % Eos % (Auto) (0.0-7.0) % Baso % (Auto) (0.0-1.5) % Neut # (Auto) (1.4-5.7) K/uL Lymph # (Auto) (0.6-2.4) K/uL [place] # (Auto) (0.0-0.8) K/uL Eos # (Auto) (0.0-0.7) K/uL Baso # (Auto) (0.0-0.1) K/uL Nucleated RBC % /100WBC Nucleated RBCs # K/uL INR 1.28 APTT (18.6-31.3) SEC Sodium 140 (136-148) mmol/L Potassium 4.3 (3.5-5.1) mmol/L Chloride 106 (98-107) mmol/L Carbon Dioxide 25.5 (21.0-32.0) mmol/L BUN 15 (7.0-18.0) mg/dL Creatinine 1.4 H (0.8-1.3) mg/dL Est Cr Clr Drug Dosing 78.80 mL/min Estimated GFR (MDRD) 54.6 ml/min Glucose 102 (74-106) mg/dL POC Glucose (70-99) mg/dL Calcium 8.9 (8.5-10.1) mg/dL Total Bilirubin 1.3 H (0.2-1.0) mg/dL AST 29 (15-37) IU/L ALT 50 (14-63) IU/L Alkaline Phosphatase 118 H (46-116) U/L Troponin I < 0.050 (0.000-0.056) ng/mL Total Protein 7.1 (6.4-8.2) g/dL Albumin 3.7 (3.4-5.0) g/dL Globulin 3.4 (2.6-4.0) g/dL Albumin/Globulin Ratio 1.1 (0.9-1.6) SARS-CoV-2 RNA (CARLA) NEGATIVE (NEGATIVE) 03/07/21 03/07/21 Range/Units 06:20 06:20 WBC 9.13 (4.0-11.0) K/uL RBC 5.33 (4.50-5.90) M/uL Hgb 15.7 (13.0-17.0) g/dL Hct 45.0 (38.0-50.0) % MCV 84.4 (80.0-98.0) fL MCH 29.5 (27.0-32.0) pg MCHC 34.9 (31.0-37.0) g/dL RDW Std Deviation 40.7 (28.0-62.0) fl RDW Coeff of Chante 13 (11.0-15.0) % Plt Count 174 (150-400) K/uL MPV 10.70 (7.40-12.00) fL Neut % (Auto) 61.6 (48.0-80.0) % Lymph % (Auto) 30.1 (16.0-40.0) % [place] % (Auto) 6.7 (0.0-15.0) % Eos % (Auto) 1.3 (0.0-7.0) % Baso % (Auto) 0.3 (0.0-1.5) % Neut # (Auto) 5.6 (1.4-5.7) K/uL Lymph # (Auto) 2.8 H (0.6-2.4) K/uL [place] # (Auto) 0.6 (0.0-0.8) K/uL Eos # (Auto) 0.1 (0.0-0.7) K/uL Baso # (Auto) 0.0 (0.0-0.1) K/uL Nucleated RBC % 0.0 /100WBC Nucleated RBCs # 0 K/uL INR APTT (18.6-31.3) SEC Sodium 141 (136-148) mmol/L Potassium 5.0 (3.5-5.1) mmol/L Chloride 108 H (98-107) mmol/L Carbon Dioxide 29.1 (21.0-32.0) mmol/L BUN 13 (7.0-18.0) mg/dL Creatinine 1.1 (0.8-1.3) mg/dL Est Cr Clr Drug Dosing 100.29 mL/min Estimated GFR (MDRD) > 60.0 ml/min Glucose 104 (74-106) mg/dL POC Glucose (70-99) mg/dL Calcium 8.3 L (8.5-10.1) mg/dL Total Bilirubin (0.2-1.0) mg/dL AST (15-37) IU/L ALT (14-63) IU/L Alkaline Phosphatase (46-116) U/L Troponin I (0.000-0.056) ng/mL Total Protein (6.4-8.2) g/dL Albumin (3.4-5.0) g/dL Globulin (2.6-4.0) g/dL Albumin/Globulin Ratio (0.9-1.6) SARS-CoV-2 RNA (CARLA) (NEGATIVE) Med Orders - Current: Current Medications Enoxaparin Sodium (Enoxaparin 100 Mg/1 Ml Syringe) 130 mg SUBCUT Q12H [facility] Lacosamide [Vimpat] (100 Tablet) 1 each PO BID [place]ARO Sodium Chloride (Sodium Chloride 0.9% 10 Ml Syringe) 10 ml FLUSH ASDIRECTED PRN PRN Reason: Keep Vein Open Sodium Chloride (Sodium Chloride 0.9% 2.5 Ml Syringe) 2.5 ml FLUSH ASDIRECTED PRN PRN Reason: Keep Vein Open Sodium Chloride (Sodium Chloride 0.9% 10 Ml Sdv) 10 ml IV ASDIRECTED PRN PRN Reason: IV Use Warfarin Sodium (Warfarin Ask Dosing) 1 each PO DAILY [facility] Last Admin: 03/07/21 10:06 Dose: Not Given Documented by: Warfarin Sodium (Warfarin 10 Mg Tab) 10 mg PO DAILY@1400 [facility] Stop: 03/07/21 15:00 Discontinued Medications Enoxaparin Sodium (Enoxaparin 150 Mg/1 Ml Syringe) 130 mg SUBCUT ONETIME ONE Stop: 03/06/21 23:59 Last Admin: 03/07/21 00:12 Dose: 130 mg Documented by: Sodium Chloride (Normal Saline) 500 mls @ 999 mls/hr IV .BOLUS ONE Stop: 03/06/21 23:36 Last Admin: 03/06/21 23:34 Dose: 999 mls/hr Documented by: Iopamidol (Iopamidol 755 Mg/Ml 100 Ml Bottle) 100 ml IVPUSH ONETIME ONE Stop: 03/06/21 22:07 Last Admin: 03/06/21 22:22 Dose: 100 ml Documented by: - Exam General: Alert, Oriented Neck: Supple Lungs: Clear to Auscultation, Normal Respiratory Effort Cardiovascular: Regular Rate, Regular Rhythm GI/Abdominal Exam: Normal Bowel Sounds, Soft, Non-Tender Extremities: Non-Tender, No Pedal Edema, Other (echymosis of right arm stable, edema around elbow stable, not tense) Neurological: No New Focal Deficit - Patient Data Lab Results Last 24 hrs: Laboratory Results - last 24 hr 03/06/21 03/06/21 03/06/21 Range/Units 21:59 22:00 22:00 WBC 11.38 H (4.0-11.0) K/uL RBC 5.83 (4.50-5.90) M/uL Hgb 17.2 H (13.0-17.0) g/dL Hct 48.7 (38.0-50.0) % MCV 83.5 (80.0-98.0) fL MCH 29.5 (27.0-32.0) pg MCHC 35.3 (31.0-37.0) g/dL RDW Std Deviation 39.6 (28.0-62.0) fl RDW Coeff of Chante 13 (11.0-15.0) % Plt Count 211 (150-400) K/uL MPV 10.50 (7.40-12.00) fL Neut % (Auto) 67.8 (48.0-80.0) % Lymph % (Auto) 24.2 (16.0-40.0) % [place] % (Auto) 6.7 (0.0-15.0) % Eos % (Auto) 1.0 (0.0-7.0) % Baso % (Auto) 0.3 (0.0-1.5) % Neut # (Auto) 7.7 H (1.4-5.7) K/uL Lymph # (Auto) 2.8 H (0.6-2.4) K/uL [place] # (Auto) 0.8 (0.0-0.8) K/uL Eos # (Auto) 0.1 (0.0-0.7) K/uL Baso # (Auto) 0.0 (0.0-0.1) K/uL Nucleated RBC % 0.0 /100WBC Nucleated RBCs # 0 K/uL INR 1.17 APTT 23.4 (18.6-31.3) SEC Sodium (136-148) mmol/L Potassium (3.5-5.1) mmol/L Chloride (98-107) mmol/L Carbon Dioxide (21.0-32.0) mmol/L BUN (7.0-18.0) mg/dL Creatinine (0.8-1.3) mg/dL Est Cr Clr Drug Dosing mL/min Estimated GFR (MDRD) ml/min Glucose (74-106) mg/dL POC Glucose 81 (70-99) mg/dL Calcium (8.5-10.1) mg/dL Total Bilirubin (0.2-1.0) mg/dL AST (15-37) IU/L ALT (14-63) IU/L Alkaline Phosphatase (46-116) U/L Troponin I (0.000-0.056) ng/mL Total Protein (6.4-8.2) g/dL Albumin (3.4-5.0) g/dL Globulin (2.6-4.0) g/dL Albumin/Globulin Ratio (0.9-1.6) SARS-CoV-2 RNA (CARLA) (NEGATIVE) 03/06/21 03/07/21 03/07/21 Range/Units 22:00 01:50 06:20 WBC (4.0-11.0) K/uL RBC (4.50-5.90) M/uL Hgb (13.0-17.0) g/dL Hct (38.0-50.0) % MCV (80.0-98.0) fL MCH (27.0-32.0) pg MCHC (31.0-37.0) g/dL RDW Std Deviation (28.0-62.0) fl RDW Coeff of Chante (11.0-15.0) % Plt Count (150-400) K/uL MPV (7.40-12.00) fL Neut % (Auto) (48.0-80.0) % Lymph % (Auto) (16.0-40.0) % [place] % (Auto) (0.0-15.0) % Eos % (Auto) (0.0-7.0) % Baso % (Auto) (0.0-1.5) % Neut # (Auto) (1.4-5.7) K/uL Lymph # (Auto) (0.6-2.4) K/uL [place] # (Auto) (0.0-0.8) K/uL Eos # (Auto) (0.0-0.7) K/uL Baso # (Auto) (0.0-0.1) K/uL Nucleated RBC % /100WBC Nucleated RBCs # K/uL INR 1.28 APTT (18.6-31.3) SEC Sodium 140 (136-148) mmol/L Potassium 4.3 (3.5-5.1) mmol/L Chloride 106 (98-107) mmol/L Carbon Dioxide 25.5 (21.0-32.0) mmol/L BUN 15 (7.0-18.0) mg/dL Creatinine 1.4 H (0.8-1.3) mg/dL Est Cr Clr Drug Dosing 78.80 mL/min Estimated GFR (MDRD) 54.6 ml/min Glucose 102 (74-106) mg/dL POC Glucose (70-99) mg/dL Calcium 8.9 (8.5-10.1) mg/dL Total Bilirubin 1.3 H (0.2-1.0) mg/dL AST 29 (15-37) IU/L ALT 50 (14-63) IU/L Alkaline Phosphatase 118 H (46-116) U/L Troponin I < 0.050 (0.000-0.056) ng/mL Total Protein 7.1 (6.4-8.2) g/dL Albumin 3.7 (3.4-5.0) g/dL Globulin 3.4 (2.6-4.0) g/dL Albumin/Globulin Ratio 1.1 (0.9-1.6) SARS-CoV-2 RNA (CARLA) NEGATIVE (NEGATIVE) 03/07/21 03/07/21 Range/Units 06:20 06:20 WBC 9.13 (4.0-11.0) K/uL RBC 5.33 (4.50-5.90) M/uL Hgb 15.7 (13.0-17.0) g/dL Hct 45.0 (38.0-50.0) % MCV 84.4 (80.0-98.0) fL MCH 29.5 (27.0-32.0) pg MCHC 34.9 (31.0-37.0) g/dL RDW Std Deviation 40.7 (28.0-62.0) fl RDW Coeff of Chante 13 (11.0-15.0) % Plt Count 174 (150-400) K/uL MPV 10.70 (7.40-12.00) fL Neut % (Auto) 61.6 (48.0-80.0) % Lymph % (Auto) 30.1 (16.0-40.0) % [place] % (Auto) 6.7 (0.0-15.0) % Eos % (Auto) 1.3 (0.0-7.0) % Baso % (Auto) 0.3 (0.0-1.5) % Neut # (Auto) 5.6 (1.4-5.7) K/uL Lymph # (Auto) 2.8 H (0.6-2.4) K/uL [place] # (Auto) 0.6 (0.0-0.8) K/uL Eos # (Auto) 0.1 (0.0-0.7) K/uL Baso # (Auto) 0.0 (0.0-0.1) K/uL Nucleated RBC % 0.0 /100WBC Nucleated RBCs # 0 K/uL INR APTT (18.6-31.3) SEC Sodium 141 (136-148) mmol/L Potassium 5.0 (3.5-5.1) mmol/L Chloride 108 H (98-107) mmol/L Carbon Dioxide 29.1 (21.0-32.0) mmol/L BUN 13 (7.0-18.0) mg/dL Creatinine 1.1 (0.8-1.3) mg/dL Est Cr Clr Drug Dosing 100.29 mL/min Estimated GFR (MDRD) > 60.0 ml/min Glucose 104 (74-106) mg/dL POC Glucose (70-99) mg/dL Calcium 8.3 L (8.5-10.1) mg/dL Total Bilirubin (0.2-1.0) mg/dL AST (15-37) IU/L ALT (14-63) IU/L Alkaline Phosphatase (46-116) U/L Troponin I (0.000-0.056) ng/mL Total Protein (6.4-8.2) g/dL Albumin (3.4-5.0) g/dL Globulin (2.6-4.0) g/dL Albumin/Globulin Ratio (0.9-1.6) SARS-CoV-2 RNA (CARLA) (NEGATIVE) Result Diagrams: 03/07/21 06:20 03/07/21 06:20 Sepsis Event Note - Evaluation Sepsis Screening Result: No Definite Risk - Focused Exam Vital Signs: Vital Signs Temp Pulse Resp BP Pulse Ox 03/07/21 08:00 36.6 C 83 16 124/94 H 98 03/07/21 03:44 36.5 C 82 18 119/94 H 95 - Problem List Review Problem List Initiated/Reviewed/Updated: Yes - My Orders Last 24 Hours: My Active Orders 03/07/21 04:11 Telemetry Monitoring [Cardiac Monitoring] [RC] Q8H 03/07/21 Breakfast Regular Diet [DIET] 03/07/21 09:00 Warfarin Dosing [Coumadin Ask] 1 each PO DAILY 03/07/21 10:41 Admission Status [Patient Status] [ADT] Routine 03/07/21 10:45 Patient's Own Medication [Ptom] 1 each PO BID 03/07/21 12:00 Enoxaparin [Lovenox] 130 mg SUBCUT Q12H 03/07/21 14:00 Warfarin [Coumadin] 10 mg PO DAILY@1400 03/08/21 05:11 BASIC METABOLIC PANEL,BMP [CHEM] AM CBC WITH AUTO DIFF [HEME] AM INR,PT,PROTHROMBIN TIME [COAG] AM 03/09/21 05:11 INR,PT,PROTHROMBIN TIME [COAG] AM 03/10/21 05:11 INR,PT,PROTHROMBIN TIME [COAG] AM - Plan Plan:: 45 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 Due to the need to monitor patient for rebleeding while bridging with lovenox and coumadin will place inpatient order.
[2021-03-07] MEDS: LACOSAMIDE PO SCH ×2 (13:12→21:54)
[2021-03-07] MEDS ORDERED: Enoxaparin 150 MG/1 ML Syringe SUBCUT SCH (13:17)
[2021-03-07] MEDS: Enoxaparin 150 MG/1 ML Syringe SUBCUT SCH ×2 (13:24→21:39)
[2021-03-07] MEDS ORDERED: Warfarin 10 MG Tab PO SCH (14:00)
[2021-03-08 06:13] LABS: BLOOD UREA NITROGEN,BUN 12 mg/dL (7.0-18.0); CARBON DIOXIDE,CO2 31.6 mmol/L (21.0-32.0); CHLORIDE,CL 104 mmol/L (98-107); GLUCOSE RANDOM 109 mg/dL (74-106); POTASSIUM,K 4.6 mmol/L (3.5-5.1); SODIUM,NA 139 mmol/L (136-148)
[2021-03-08] MEDS: LACOSAMIDE PO SCH ×2 (09:31→20:20)
[2021-03-08] MEDS: Enoxaparin 150 MG/1 ML Syringe SUBCUT SCH ×2 (09:32→20:21)
[2021-03-08] MEDS ORDERED: Warfarin 10 MG Tab PO SCH (14:00)
[2021-03-08] MEDS ORDERED: Gadobenate Dimeglumine 529 MG/ML 20 ML SDV IVPUSH STA (14:04)
--- NOTE | 2021-03-08 14:06 | PCM.PN ---
- General Info Date of Service: 03/08/21 Admission Dx/Problem (Free Text): Admission Diagnosis/Problem Admission Diagnosis/Problem TIA, Transient ischemic attack Subjective Update: 45-year-old male with history of dysfibrinogenemia and stroke at age 18 years is admitted for TIA after experiencing loss of vision. Patient is chronically anticoagulated with warfarin. He had subtherapeutic INR and is admitted to bridge him to therapeutic levels. Patient is currently on Lovenox 130 mg every 12 hours and is tolerating well. Today INR is 1.43. Patient denies any visual symptoms, weakness, difficulty speaking or headaches. - Review of Systems General: Reports: No Symptoms HEENT: Reports: No Symptoms Pulmonary: Reports: No Symptoms Cardiovascular: Reports: No Symptoms Gastrointestinal: Reports: No Symptoms Genitourinary: Reports: No Symptoms Musculoskeletal: Reports: No Symptoms Neurological: Reports: Trouble Speaking. Denies: Confusion, Dizziness, Headache, Numbness, Paresthesia, Seizure, Tingling, Weakness, Change in Speech - Patient Data Vitals - Most Recent: Last Vital Signs Temp 97.9 F 03/08/21 13:00 Pulse 101 H 03/08/21 13:00 Resp 16 03/08/21 13:00 BP 138/90 03/08/21 13:00 Pulse Ox 95 03/08/21 13:00 Weight - Most Recent: 287 lb 6.4 oz I&O - Last 24 Hours: Intake & Output 03/07/21 03/08/21 03/08/21 22:59 06:59 14:59 Intake Total 860 620 Output Total 650 1200 Balance 210 -580 Lab Results Last 24 Hours: Laboratory Results - last 24 hr 03/08/21 03/08/21 03/08/21 Range/Units 05:15 05:15 05:15 WBC 10.00 (4.0-11.0) K/uL RBC 5.83 (4.50-5.90) M/uL Hgb 17.2 H (13.0-17.0) g/dL Hct 49.1 (38.0-50.0) % MCV 84.2 (80.0-98.0) fL MCH 29.5 (27.0-32.0) pg MCHC 35.0 (31.0-37.0) g/dL RDW Std Deviation 40.7 (28.0-62.0) fl RDW Coeff of Chante 14 (11.0-15.0) % Plt Count 180 (150-400) K/uL MPV 10.50 (7.40-12.00) fL Neut % (Auto) 64.3 (48.0-80.0) % Lymph % (Auto) 26.5 (16.0-40.0) % [place] % (Auto) 7.8 (0.0-15.0) % Eos % (Auto) 1.1 (0.0-7.0) % Baso % (Auto) 0.3 (0.0-1.5) % Neut # (Auto) 6.4 H (1.4-5.7) K/uL Lymph # (Auto) 2.7 H (0.6-2.4) K/uL [place] # (Auto) 0.8 (0.0-0.8) K/uL Eos # (Auto) 0.1 (0.0-0.7) K/uL Baso # (Auto) 0.0 (0.0-0.1) K/uL Nucleated RBC % 0.0 /100WBC Nucleated RBCs # 0 K/uL INR 1.43 Sodium 139 (136-148) mmol/L Potassium 4.6 (3.5-5.1) mmol/L Chloride 104 (98-107) mmol/L Carbon Dioxide 31.6 (21.0-32.0) mmol/L BUN 12 (7.0-18.0) mg/dL Creatinine 1.0 (0.8-1.3) mg/dL Est Cr Clr Drug Dosing 110.32 mL/min Estimated GFR (MDRD) > 60.0 ml/min Glucose 109 H (74-106) mg/dL Calcium 9.1 (8.5-10.1) mg/dL Med Orders - Current: Current Medications Enoxaparin Sodium (Enoxaparin 150 Mg/1 Ml Syringe) 130 mg SUBCUT Q12HR [facility] Last Admin: 03/08/21 09:32 Dose: 130 mg Documented by: Lacosamide [Vimpat] (100 Tablet) 1 each PO BID [facility] Last Admin: 03/08/21 09:31 Dose: 1 each Documented by: Sodium Chloride (Sodium Chloride 0.9% 10 Ml Syringe) 10 ml FLUSH ASDIRECTED PRN PRN Reason: Keep Vein Open Sodium Chloride (Sodium Chloride 0.9% 2.5 Ml Syringe) 2.5 ml FLUSH ASDIRECTED PRN PRN Reason: Keep Vein Open Sodium Chloride (Sodium Chloride 0.9% 10 Ml Sdv) 10 ml IV ASDIRECTED PRN PRN Reason: IV Use Warfarin Sodium (Warfarin Ask Dosing) 1 each PO DAILY [facility] Last Admin: 03/08/21 09:38 Dose: Not Given Documented by: Warfarin Sodium (Warfarin 10 Mg Tab) 10 mg PO DAILY@1400 [facility] Stop: 03/08/21 15:00 Discontinued Medications Enoxaparin Sodium (Enoxaparin 150 Mg/1 Ml Syringe) 130 mg SUBCUT ONETIME ONE Stop: 03/06/21 23:59 Last Admin: 03/07/21 00:12 Dose: 130 mg Documented by: Enoxaparin Sodium (Enoxaparin 100 Mg/1 Ml Syringe) 130 mg SUBCUT Q12H [facility] Last Admin: 03/07/21 18:54 Dose: Not Given Documented by: Sodium Chloride (Normal Saline) 500 mls @ 999 mls/hr IV .BOLUS ONE Stop: 03/06/21 23:36 Last Admin: 03/06/21 23:34 Dose: 999 mls/hr Documented by: Iopamidol (Iopamidol 755 Mg/Ml 100 Ml Bottle) 100 ml IVPUSH ONETIME ONE Stop: 03/06/21 22:07 Last Admin: 03/06/21 22:22 Dose: 100 ml Documented by: Warfarin Sodium (Warfarin 10 Mg Tab) 10 mg PO DAILY@1400 [facility] Stop: 03/07/21 15:00 Last Admin: 03/07/21 13:22 Dose: 10 mg Documented by: - Exam General: Alert, Oriented, Cooperative, No Acute Distress HEENT: EOMI Neck: Supple Lungs: Clear to Auscultation Cardiovascular: Regular Rate, Regular Rhythm GI/Abdominal Exam: Normal Bowel Sounds, Soft, Non-Tender Extremities: Normal Inspection, Other (Right arm is wrapped in Jorge Luis wrap. Erythema and swelling of hematoma has decreased.) Neurological: No New Focal Deficit - Patient Data Lab Results Last 24 hrs: Laboratory Results - last 24 hr 03/08/21 03/08/21 03/08/21 Range/Units 05:15 05:15 05:15 WBC 10.00 (4.0-11.0) K/uL RBC 5.83 (4.50-5.90) M/uL Hgb 17.2 H (13.0-17.0) g/dL Hct 49.1 (38.0-50.0) % MCV 84.2 (80.0-98.0) fL MCH 29.5 (27.0-32.0) pg MCHC 35.0 (31.0-37.0) g/dL RDW Std Deviation 40.7 (28.0-62.0) fl RDW Coeff of Chante 14 (11.0-15.0) % Plt Count 180 (150-400) K/uL MPV 10.50 (7.40-12.00) fL Neut % (Auto) 64.3 (48.0-80.0) % Lymph % (Auto) 26.5 (16.0-40.0) % [place] % (Auto) 7.8 (0.0-15.0) % Eos % (Auto) 1.1 (0.0-7.0) % Baso % (Auto) 0.3 (0.0-1.5) % Neut # (Auto) 6.4 H (1.4-5.7) K/uL Lymph # (Auto) 2.7 H (0.6-2.4) K/uL [place] # (Auto) 0.8 (0.0-0.8) K/uL Eos # (Auto) 0.1 (0.0-0.7) K/uL Baso # (Auto) 0.0 (0.0-0.1) K/uL Nucleated RBC % 0.0 /100WBC Nucleated RBCs # 0 K/uL INR 1.43 Sodium 139 (136-148) mmol/L Potassium 4.6 (3.5-5.1) mmol/L Chloride 104 (98-107) mmol/L Carbon Dioxide 31.6 (21.0-32.0) mmol/L BUN 12 (7.0-18.0) mg/dL Creatinine 1.0 (0.8-1.3) mg/dL Est Cr Clr Drug Dosing 110.32 mL/min Estimated GFR (MDRD) > 60.0 ml/min Glucose 109 H (74-106) mg/dL Calcium 9.1 (8.5-10.1) mg/dL Result Diagrams: 03/08/21 05:15 03/08/21 05:15 Sepsis Event Note - Evaluation Sepsis Screening Result: No Definite Risk - Focused Exam Vital Signs: Vital Signs Temp Pulse Resp BP Pulse Ox 03/08/21 13:00 97.9 F 101 H 16 138/90 95 03/08/21 08:00 98.0 F 101 H 16 121/80 94 L 03/08/21 03:40 96.5 F L 87 16 119/85 95 - Problem List Review Problem List Initiated/Reviewed/Updated: Yes - My Orders Last 24 Hours: My Active Orders 03/08/21 12:25 Ang Head wo Cont [MR] Urgent Ang Neck w wo Cont [MR] Urgent Brain w wo Cont [MR] Urgent 03/09/21 05:11 BASIC METABOLIC PANEL,BMP [CHEM] AM CBC WITH AUTO DIFF [HEME] AM - Plan Plan:: 45-year-old male with a history of dysfibrinogenemia, admitted for TIA is currently being bridged back to Coumadin with Lovenox 130 mg every 12 hours. Last INR 1.43. We will get an MRI head and MRA neck.
--- NOTE | 2021-03-08 15:27 | MR ---
INDICATION: Transient ischemic attack. TECHNIQUE: MRI brain: Multiplanar multisequence MR imaging was acquired prior to and following intravenous contrast. MRA head: Usgj-xg-ycbufy imaging was acquired. MRA neck: Pahe-rt-zrgjjj and postcontrast imaging were acquired. COMPARISON: CTA head and neck 03/06/2021. 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 The ventricular system is otherwise within normal limits for patient age. No mass effect or midline shift. Few punctate T2 FLAIR hyperintensities in the supratentorial white matter, nonspecific. Small chronic cortically based infarction in the posterior right parietal lobe (series 301, image 19). No recent intracranial hemorrhage or pathologic extra-axial fluid collection. No diffusion restriction to suggest acute infarction. Artifact degrades postcontrast images. No concerning pathologic intracranial enhancement within exam limitations. The major arterial flow voids of the skullbase are preserved. The globes are symmetric. The paranasal sinuses are well aerated. The mastoid air cells are clear. MRA head: The visualized internal carotid, middle cerebral, and anterior cerebral arteries are widely patent. The vertebral, basilar, and posterior cerebral arteries are widely patent. No intracranial aneurysm. MRA neck: The common carotid and internal carotid arteries are widely patent. The vertebral arteries are codominant and widely patent. IMPRESSION: 1. No acute intracranial abnormality. 2. 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 3. Small chronic cortically based infarction in the posterior right parietal lobe. 4. Unremarkable MRA of the head and neck. Dictated by Wojciech Somers MD @ 03/08/2021 3:26:[address] Wojciech Somers @ Mar 08 2021 3:26PM
[2021-03-09 07:11] LABS: BLOOD UREA NITROGEN,BUN 15 mg/dL (7.0-18.0); CARBON DIOXIDE,CO2 30.6 mmol/L (21.0-32.0); CHLORIDE,CL 103 mmol/L (98-107); GLUCOSE RANDOM 108 mg/dL (74-106); POTASSIUM,K 4.6 mmol/L (3.5-5.1); SODIUM,NA 137 mmol/L (136-148)
[2021-03-09] MEDS: LACOSAMIDE PO SCH ×2 (08:35→20:29)
[2021-03-09] MEDS: Enoxaparin 150 MG/1 ML Syringe SUBCUT SCH ×2 (08:37→20:29)
[2021-03-09] MEDS ORDERED: Warfarin 10 MG Tab PO SCH (14:00)
--- NOTE | 2021-03-09 17:23 | PCM.PN ---
- General Info Date of Service: 03/09/21 Admission Dx/Problem (Free Text): Admission Diagnosis/Problem Admission Diagnosis/Problem TIA, Transient ischemic attack Subjective Update: 45-year-old male with history of dysfibrinogenemia and stroke at age 18 years is admitted for TIA after experiencing loss of vision. Patient states that his arm is no longer swollen and he removed his Jorge Luis wrap. Patient is eating and tolerating diet. Patient is having bowel movement. Patient is urinating. Patient denies any acute complaints. INR today is 1.46. MRI and MRA of brain and neck was unremarkable, showed moderate large chronic left MCA infarct. Patient denies any visual symptoms, weakness, difficulty speaking or headaches. - Review of Systems General: Reports: No Symptoms HEENT: Reports: No Symptoms Pulmonary: Reports: No Symptoms Cardiovascular: Reports: No Symptoms Gastrointestinal: Reports: No Symptoms Genitourinary: Reports: No Symptoms Musculoskeletal: Reports: No Symptoms Skin: Reports: No Symptoms Neurological: Reports: No Symptoms - Patient Data Vitals - Most Recent: Last Vital Signs Temp 97.0 F 03/09/21 16:00 Pulse 118 H 03/09/21 16:00 Resp 20 03/09/21 16:00 BP 129/74 03/09/21 16:00 Pulse Ox 94 L 03/09/21 16:00 Weight - Most Recent: 287 lb 6.4 oz I&O - Last 24 Hours: Intake & Output 03/09/21 03/09/21 03/09/21 06:59 14:59 22:59 Intake Total 300 680 Output Total 350 700 Balance -50 -20 Lab Results Last 24 Hours: Laboratory Results - last 24 hr 03/09/21 03/09/21 03/09/21 Range/Units 06:06 06:06 06:06 WBC 10.75 (4.0-11.0) K/uL RBC 5.99 H (4.50-5.90) M/uL Hgb 17.7 H (13.0-17.0) g/dL Hct 50.5 H (38.0-50.0) % MCV 84.3 (80.0-98.0) fL MCH 29.5 (27.0-32.0) pg MCHC 35.0 (31.0-37.0) g/dL RDW Std Deviation 41.4 (28.0-62.0) fl RDW Coeff of Chante 14 (11.0-15.0) % Plt Count 199 (150-400) K/uL MPV 10.80 (7.40-12.00) fL Neut % (Auto) 64.2 (48.0-80.0) % Lymph % (Auto) 26.4 (16.0-40.0) % Pierce % (Auto) 7.4 (0.0-15.0) % Eos % (Auto) 1.5 (0.0-7.0) % Baso % (Auto) 0.5 (0.0-1.5) % Neut # (Auto) 6.9 H (1.4-5.7) K/uL Lymph # (Auto) 2.8 H (0.6-2.4) K/uL Pierce # (Auto) 0.8 (0.0-0.8) K/uL Eos # (Auto) 0.2 (0.0-0.7) K/uL Baso # (Auto) 0.1 (0.0-0.1) K/uL Nucleated RBC % 0.0 /100WBC Nucleated RBCs # 0 K/uL INR 1.46 Sodium 137 (136-148) mmol/L Potassium 4.6 (3.5-5.1) mmol/L Chloride 103 (98-107) mmol/L Carbon Dioxide 30.6 (21.0-32.0) mmol/L BUN 15 (7.0-18.0) mg/dL Creatinine 1.2 (0.8-1.3) mg/dL Est Cr Clr Drug Dosing 91.93 mL/min Estimated GFR (MDRD) > 60.0 ml/min Glucose 108 H (74-106) mg/dL Calcium 9.2 (8.5-10.1) mg/dL Med Orders - Current: Current Medications Enoxaparin Sodium (Enoxaparin 150 Mg/1 Ml Syringe) 130 mg SUBCUT Q12HR [facility] Last Admin: 03/09/21 08:37 Dose: 130 mg Documented by: Lacosamide [Vimpat] (100 Tablet) 1 each PO BID [facility] Last Admin: 03/09/21 08:35 Dose: 1 each Documented by: Sodium Chloride (Sodium Chloride 0.9% 10 Ml Syringe) 10 ml FLUSH ASDIRECTED PRN PRN Reason: Keep Vein Open Sodium Chloride (Sodium Chloride 0.9% 2.5 Ml Syringe) 2.5 ml FLUSH ASDIRECTED PRN PRN Reason: Keep Vein Open Sodium Chloride (Sodium Chloride 0.9% 10 Ml Sdv) 10 ml IV ASDIRECTED PRN PRN Reason: IV Use Warfarin Sodium (Warfarin Ask Dosing) 1 each PO DAILY [facility] Last Admin: 03/09/21 10:23 Dose: Not Given Documented by: Discontinued Medications Enoxaparin Sodium (Enoxaparin 150 Mg/1 Ml Syringe) 130 mg SUBCUT ONETIME ONE Stop: 03/06/21 23:59 Last Admin: 03/07/21 00:12 Dose: 130 mg Documented by: Enoxaparin Sodium (Enoxaparin 100 Mg/1 Ml Syringe) 130 mg SUBCUT Q12H [facility] Last Admin: 03/07/21 18:54 Dose: Not Given Documented by: Gadobenate Dimeglumine (Gadobenate Dimeglumine 529 Mg/Ml 20 Ml Sdv) 20 ml IVPUSH ONETIME STA Stop: 03/08/21 14:05 Last Admin: 03/08/21 14:04 Dose: 20 ml Documented by: Sodium Chloride (Normal Saline) 500 mls @ 999 mls/hr IV .BOLUS ONE Stop: 03/06/21 23:36 Last Admin: 03/06/21 23:34 Dose: 999 mls/hr Documented by: Iopamidol (Iopamidol 755 Mg/Ml 100 Ml Bottle) 100 ml IVPUSH ONETIME ONE Stop: 03/06/21 22:07 Last Admin: 03/06/21 22:22 Dose: 100 ml Documented by: Warfarin Sodium (Warfarin 10 Mg Tab) 10 mg PO DAILY@1400 [facility] Stop: 03/07/21 15:00 Last Admin: 03/07/21 13:22 Dose: 10 mg Documented by: Warfarin Sodium (Warfarin 10 Mg Tab) 10 mg PO DAILY@1400 [facility] Stop: 03/08/21 15:00 Last Admin: 03/08/21 15:48 Dose: 10 mg Documented by: Warfarin Sodium (Warfarin 10 Mg Tab) 15 mg PO DAILY@1400 [facility] Stop: 03/09/21 15:00 Last Admin: 03/09/21 14:07 Dose: 15 mg Documented by: - Exam General: Alert, Oriented, Cooperative Neck: Supple Lungs: Clear to Auscultation Cardiovascular: Regular Rate, Regular Rhythm GI/Abdominal Exam: Normal Bowel Sounds, Soft, Non-Tender Extremities: No Pedal Edema. No: Greg's Sign, Leg Pain Skin: No: Ecchymosis Neurological: No New Focal Deficit - Patient Data Lab Results Last 24 hrs: Laboratory Results - last 24 hr 03/09/21 03/09/21 03/09/21 Range/Units 06:06 06:06 06:06 WBC 10.75 (4.0-11.0) K/uL RBC 5.99 H (4.50-5.90) M/uL Hgb 17.7 H (13.0-17.0) g/dL Hct 50.5 H (38.0-50.0) % MCV 84.3 (80.0-98.0) fL MCH 29.5 (27.0-32.0) pg MCHC 35.0 (31.0-37.0) g/dL RDW Std Deviation 41.4 (28.0-62.0) fl RDW Coeff of Chante 14 (11.0-15.0) % Plt Count 199 (150-400) K/uL MPV 10.80 (7.40-12.00) fL Neut % (Auto) 64.2 (48.0-80.0) % Lymph % (Auto) 26.4 (16.0-40.0) % Pierce % (Auto) 7.4 (0.0-15.0) % Eos % (Auto) 1.5 (0.0-7.0) % Baso % (Auto) 0.5 (0.0-1.5) % Neut # (Auto) 6.9 H (1.4-5.7) K/uL Lymph # (Auto) 2.8 H (0.6-2.4) K/uL Pierce # (Auto) 0.8 (0.0-0.8) K/uL Eos # (Auto) 0.2 (0.0-0.7) K/uL Baso # (Auto) 0.1 (0.0-0.1) K/uL Nucleated RBC % 0.0 /100WBC Nucleated RBCs # 0 K/uL INR 1.46 Sodium 137 (136-148) mmol/L Potassium 4.6 (3.5-5.1) mmol/L Chloride 103 (98-107) mmol/L Carbon Dioxide 30.6 (21.0-32.0) mmol/L BUN 15 (7.0-18.0) mg/dL Creatinine 1.2 (0.8-1.3) mg/dL Est Cr Clr Drug Dosing 91.93 mL/min Estimated GFR (MDRD) > 60.0 ml/min Glucose 108 H (74-106) mg/dL Calcium 9.2 (8.5-10.1) mg/dL Result Diagrams: 03/09/21 06:06 03/09/21 06:06 Sepsis Event Note - Evaluation Sepsis Screening Result: No Definite Risk - Focused Exam Vital Signs: Vital Signs Temp Pulse Resp BP Pulse Ox 03/09/21 16:00 97.0 F 118 H 20 129/74 94 L 03/09/21 12:00 98.1 F 106 H 20 140/95 H 91 L 03/09/21 07:43 97.9 F 78 20 129/83 91 L - Problem List Review Problem List Initiated/Reviewed/Updated: Yes - My Orders Last 24 Hours: My Active Orders 03/10/21 05:11 CBC W/O DIFF,HEMOGRAM [HEME] AM CMP [COMPREHENSIVE METABOLIC PN,CMP] [CHEM] AM - Plan Plan:: 45-year-old male with a history of dysfibrinogenemia, admitted for TIA is currently being bridged back to Coumadin with Lovenox 130 mg every 12 hours. INR today is 1.46. MRI/MRA brain and neck was unremarkable. Spoke with pharmacy and he will get Warfarin 15 today. Continue Lovenox bridging.
[2021-03-10 06:58] LABS: BLOOD UREA NITROGEN,BUN 14 mg/dL (7.0-18.0); CARBON DIOXIDE,CO2 29.8 mmol/L (21.0-32.0); CHLORIDE,CL 104 mmol/L (98-107); GLUCOSE RANDOM 112 mg/dL (74-106); POTASSIUM,K 4.2 mmol/L (3.5-5.1); SODIUM,NA 141 mmol/L (136-148)
[2021-03-10] MEDS: Enoxaparin 150 MG/1 ML Syringe SUBCUT SCH (09:05)
[2021-03-10] MEDS: LACOSAMIDE PO SCH (09:09)
--- NOTE | 2021-03-10 12:05 | PCM.DCSUM1 ---
<Sanya Weldon - Last Filed: 03/10/21 14:08> Discharge Summary - Hospital Course Free Text/Narrative:: 45-year-old male with a history of dysfibrinogenemia and stroke at age 18 presented to the ER complaining of acute loss of vision in both eyes. Patient come to the ER the day prior due to right arm hematoma and was given vitamin K and advised to hold his daily Coumadin. Patient had loss of vision in his right eye first followed by left. After a few hours his left patient returned follow ed by right eye later on. He denied difficulty with speech. He denied facial droop. He denied drooling. He denied weakness, numbness or tingling. Patient denied headaches. CT head showed no acute findings but showed encephalomalacia of the left MCA. Patient's INR was 1.17. Patient was admitted for TIA and treated with Lovenox to bridge for therapeutic INR. Patient received 130 mg Lovenox twice daily and daily Coumadin. Patient's INR slowly increased and today it is 1.69. Patient is stable and agrees to completing Lovenox bridge at home with daily INR checks in the Coumadin clinic. - Discharge Data Discharge Date: 03/10/21 Discharge Disposition: Home, Self-Care 01 Condition: Stable - Referral to Home Health Primary Care Physician: PCP None - Patient Instructions Diet: Usual Diet as Tolerated Notify Provider of: Fever, Increased Pain, Swelling and Redness (Hematoma/Bruising) Other/Special Instructions: During discharge with a prescription for Lovenox 130 mg injection to be taken every 12 hours until INR reaches 2.0. You are also to continue taking your home Coumadin dose. You must return to the Coumadin clinic to have your INR checked on 11/09 and again on 11/10 to ensure that your INR becomes therapeutic (2.0-3.0). If you experience any new onset of neurologic symptoms such as changes in vision, weakness, difficulty speaking, difficulty moving, or facial droop please go to the emergency room. If you experience any side effects such as bleeding or bruising, blood in your urine, blood in your stool or swelling in your joints please go to emergency room. - Discharge Plan *PRESCRIPTION DRUG MONITORING PROGRAM REVIEWED*: Not Applicable *COPY OF PRESCRIPTION DRUG MONITORING REPORT IN PATIENT JARRETT: Not Applicable Prescriptions/Med Rec: Enoxaparin [Lovenox] 130 mg SUBCUT Q12HR 4 Days #8 syringe Home Medications: Home Meds Lacosamide [Vimpat] 100 mg PO DAILY 04/29/19 [History] Warfarin [Coumadin] 10 mg PO DAILY 04/29/19 [History] Enoxaparin [Lovenox] 130 mg SUBCUT Q12HR 4 Days #8 syringe 03/10/21 [Rx] Patient Handouts: Transient Ischemic Attack, [id number], Enoxaparin injection Referrals: Tiffany Russell PA [Physician Hospital Laboratory Technician] - 03/11/21 3:15 pm - Discharge Summary/Plan Comment DC Time >30 min.: Yes - General Info Admission Dx/Problem (Free Text: Admission Diagnosis/Problem Admission Diagnosis/Problem TIA, Transient ischemic attack - Review of Systems General: Reports: No Symptoms HEENT: Reports: No Symptoms Pulmonary: Denies: Pleuritic Chest Pain Cardiovascular: Reports: No Symptoms Gastrointestinal: Reports: No Symptoms Genitourinary: Reports: No Symptoms Musculoskeletal: Reports: No Symptoms Skin: Denies: Jaundice, Bruising, Rash Neurological: Denies: Confusion, Dizziness, Headache, Numbness, Paresthesia, Seizure, Syncope, Tingling, Trouble Speaking, Gait Disturbance - Patient Data Vitals - Most Recent: Last Vital Signs Temp 97.4 F 03/10/21 11:40 Pulse 105 H 03/10/21 11:40 Resp 20 03/10/21 11:40 BP 132/86 03/10/21 07:52 Pulse Ox 93 L 03/10/21 11:40 Weight - Most Recent: 130.362 kg I&O - Last 24 hours: Intake & Output 03/09/21 03/10/21 03/10/21 22:59 06:59 14:59 Intake Total 680 400 Output Total 700 500 Balance -20 -100 Lab Results - Last 24 hrs: Laboratory Results - last 24 hr 03/10/21 03/10/21 03/10/21 Range/Units 05:53 05:53 05:53 WBC 9.79 (4.0-11.0) K/uL RBC 6.00 H (4.50-5.90) M/uL Hgb 17.6 H (13.0-17.0) g/dL Hct 50.8 H (38.0-50.0) % MCV 84.7 (80.0-98.0) fL MCH 29.3 (27.0-32.0) pg MCHC 34.6 (31.0-37.0) g/dL RDW Std Deviation 41.5 (28.0-62.0) fl RDW Coeff of Chante 14 (11.0-15.0) % Plt Count 195 (150-400) K/uL MPV 10.30 (7.40-12.00) fL Nucleated RBC % 0.0 /100WBC Nucleated RBCs # 0 K/uL INR 1.69 Sodium 141 (136-148) mmol/L Potassium 4.2 (3.5-5.1) mmol/L Chloride 104 (98-107) mmol/L Carbon Dioxide 29.8 (21.0-32.0) mmol/L BUN 14 (7.0-18.0) mg/dL Creatinine 1.1 (0.8-1.3) mg/dL Est Cr Clr Drug Dosing 100.29 mL/min Estimated GFR (MDRD) > 60.0 ml/min Glucose 112 H (74-106) mg/dL Calcium 8.9 (8.5-10.1) mg/dL Total Bilirubin 1.3 H (0.2-1.0) mg/dL AST 76 H (15-37) IU/L ALT 133 H (14-63) IU/L Alkaline Phosphatase 97 (46-116) U/L Total Protein 6.9 (6.4-8.2) g/dL Albumin 3.4 (3.4-5.0) g/dL Globulin 3.5 (2.6-4.0) g/dL Albumin/Globulin Ratio 1.0 (0.9-1.6) Med Orders - Current: Current Medications Enoxaparin Sodium (Enoxaparin 150 Mg/1 Ml Syringe) 130 mg SUBCUT Q12HR [facility] Last Admin: 03/10/21 09:05 Dose: 130 mg Documented by: Lacosamide [Vimpat] (100 Tablet) 1 each PO BID [facility] Last Admin: 03/10/21 09:09 Dose: 1 each Documented by: Sodium Chloride (Sodium Chloride 0.9% 10 Ml Syringe) 10 ml FLUSH ASDIRECTED PRN PRN Reason: Keep Vein Open Sodium Chloride (Sodium Chloride 0.9% 2.5 Ml Syringe) 2.5 ml FLUSH ASDIRECTED PRN PRN Reason: Keep Vein Open Sodium Chloride (Sodium Chloride 0.9% 10 Ml Sdv) 10 ml IV ASDIRECTED PRN PRN Reason: IV Use Warfarin Sodium (Warfarin Ask Dosing) 1 each PO DAILY [facility] Last Admin: 03/10/21 09:26 Dose: Not Given Documented by: Warfarin Sodium (Warfarin 10 Mg Tab) 15 mg PO DAILY@1400 [facility] Stop: 03/10/21 15:00 Discontinued Medications Enoxaparin Sodium (Enoxaparin 150 Mg/1 Ml Syringe) 130 mg SUBCUT ONETIME ONE Stop: 03/06/21 23:59 Last Admin: 03/07/21 00:12 Dose: 130 mg Documented by: Enoxaparin Sodium (Enoxaparin 100 Mg/1 Ml Syringe) 130 mg SUBCUT Q12H [facility] Last Admin: 03/07/21 18:54 Dose: Not Given Documented by: Gadobenate Dimeglumine (Gadobenate Dimeglumine 529 Mg/Ml 20 Ml Sdv) 20 ml IVPUSH ONETIME STA Stop: 03/08/21 14:05 Last Admin: 03/08/21 14:04 Dose: 20 ml Documented by: Sodium Chloride (Normal Saline) 500 mls @ 999 mls/hr IV .BOLUS ONE Stop: 03/06/21 23:36 Last Admin: 03/06/21 23:34 Dose: 999 mls/hr Documented by: Iopamidol (Iopamidol 755 Mg/Ml 100 Ml Bottle) 100 ml IVPUSH ONETIME ONE Stop: 03/06/21 22:07 Last Admin: 03/06/21 22:22 Dose: 100 ml Documented by: Warfarin Sodium (Warfarin 10 Mg Tab) 10 mg PO DAILY@1400 [facility] Stop: 03/07/21 15:00 Last Admin: 03/07/21 13:22 Dose: 10 mg Documented by: Warfarin Sodium (Warfarin 10 Mg Tab) 10 mg PO DAILY@1400 [facility] Stop: 03/08/21 15:00 Last Admin: 03/08/21 15:48 Dose: 10 mg Documented by: Warfarin Sodium (Warfarin 10 Mg Tab) 15 mg PO DAILY@1400 [facility] Stop: 03/09/21 15:00 Last Admin: 03/09/21 14:07 Dose: 15 mg Documented by: - Exam General: Reports: Alert, Oriented, Cooperative HEENT: Reports: Pupils Equal, EOMI. Denies: Scleral Icterus Neck: Reports: Supple Lungs: Reports: Clear to Auscultation Cardiovascular: Reports: Regular Rate, Regular Rhythm GI/Abdominal Exam: Normal Bowel Sounds, Soft, Non-Tender Extremities: Normal Inspection, Normal Range of Motion, Non-Tender, No Pedal Edema. No: Joint Swelling, Arm Pain, Greg's Sign, Leg Pain, Redness Skin: Reports: Warm, Dry, Intact. Denies: Ecchymosis Neurological: Reports: No New Focal Deficit, Normal Gait, Reflexes Equal Bilateral <Jesús Diaz - Last Filed: 03/11/21 14:43> Discharge Summary - Hospital Course Free Text/Narrative:: I have seen and evaluated the patient and agree with the residents note unless specified in my note - Referral to Home Health Primary Care Physician: PCP None - Patient Data Vitals - Most Recent: Last Vital Signs Temp 36.3 C 03/10/21 11:40 Pulse 105 H 03/10/21 11:40 Resp 20 03/10/21 11:40 BP 132/86 03/10/21 07:52 Pulse Ox 93 L 03/10/21 11:40 Med Orders - Current: Current Medications Discontinued Medications Enoxaparin Sodium (Enoxaparin 150 Mg/1 Ml Syringe) 130 mg SUBCUT ONETIME ONE Stop: 03/06/21 23:59 Last Admin: 03/07/21 00:12 Dose: 130 mg Documented by: Enoxaparin Sodium (Enoxaparin 100 Mg/1 Ml Syringe) 130 mg SUBCUT Q12H [facility] Last Admin: 03/07/21 18:54 Dose: Not Given Documented by: Enoxaparin Sodium (Enoxaparin 150 Mg/1 Ml Syringe) 130 mg SUBCUT Q12HR [facility] Last Admin: 03/10/21 09:05 Dose: 130 mg Documented by: Gadobenate Dimeglumine (Gadobenate Dimeglumine 529 Mg/Ml 20 Ml Sdv) 20 ml IVPUSH ONETIME STA Stop: 03/08/21 14:05 Last Admin: 03/08/21 14:04 Dose: 20 ml Documented by: Sodium Chloride (Normal Saline) 500 mls @ 999 mls/hr IV .BOLUS ONE Stop: 03/06/21 23:36 Last Admin: 03/06/21 23:34 Dose: 999 mls/hr Documented by: Iopamidol (Iopamidol 755 Mg/Ml 100 Ml Bottle) 100 ml IVPUSH ONETIME ONE Stop: 03/06/21 22:07 Last Admin: 03/06/21 22:22 Dose: 100 ml Documented by: Lacosamide [Vimpat] (100 Tablet) 1 each PO BID [facility] Last Admin: 03/10/21 09:09 Dose: 1 each Documented by: Sodium Chloride (Sodium Chloride 0.9% 10 Ml Syringe) 10 ml FLUSH ASDIRECTED PRN PRN Reason: Keep Vein Open Sodium Chloride (Sodium Chloride 0.9% 2.5 Ml Syringe) 2.5 ml FLUSH ASDIRECTED PRN PRN Reason: Keep Vein Open Sodium Chloride (Sodium Chloride 0.9% 10 Ml Sdv) 10 ml IV ASDIRECTED PRN PRN Reason: IV Use Warfarin Sodium (Warfarin Ask Dosing) 1 each PO DAILY [facility] Last Admin: 03/10/21 09:26 Dose: Not Given Documented by: Warfarin Sodium (Warfarin 10 Mg Tab) 10 mg PO DAILY@1400 [facility] Stop: 03/07/21 15:00 Last Admin: 03/07/21 13:22 Dose: 10 mg Documented by: Warfarin Sodium (Warfarin 10 Mg Tab) 10 mg PO DAILY@1400 [facility] Stop: 03/08/21 15:00 Last Admin: 03/08/21 15:48 Dose: 10 mg Documented by: Warfarin Sodium (Warfarin 10 Mg Tab) 15 mg PO DAILY@1400 [facility] Stop: 03/09/21 15:00 Last Admin: 03/09/21 14:07 Dose: 15 mg Documented by: Warfarin Sodium (Warfarin 10 Mg Tab) 15 mg PO DAILY@1230 [facility] Last Admin: 03/10/21 12:41 Dose: 15 mg Documented by:
[2021-03-10] MEDS ORDERED: Warfarin 10 MG Tab PO SCH (12:30)
== END 2021-03-10 12:25 | disposition home or self-care (01) | DRG 69 ==
LOC: MW.ED 21:33 → MW.MS 03-07 → OBSVTOIN 03-07 10:44 → MW.MS 03-07 15:47
PROVIDERS: ADMIT Internal Medicine; ATTEND Internal Medicine
DX: G45.9 Transient cerebral ischemic attack, unspecified (principal); D68.2 Hereditary deficiency of other clotting factors; H54.7 Unspecified visual loss; Z86.73 Personal history of transient ischemic attack (TIA), and cerebral infarction without residual deficits; Z79.01 Long term (current) use of anticoagulants; Z79.899 Other long term (current) drug therapy; Z86.718 Personal history of other venous thrombosis and embolism; Z20.822 Contact with and (suspected) exposure to COVID-19
CPT/HCPCS: 36415; 70450; 70450-26; 70496; 70496-26; 70498; 70498-26; 70544; 70544-26; 70549; 70549-26; 70553; 70553-26; 80048; 80053; 82947; 84484; 85025; 85027; 85610; 85730; 93005; 96372; 99285-25; A9270-GY; A9577; J1650; J7030; Q9967; U0002

== ENCOUNTER 2023-04-10 17:26 | Emergency (ER) | payer BC | END 2023-04-10 20:45 | disposition home or self-care (01) | LOC: MW.ED 17:26 | DX: I82.401 Acute embolism and thrombosis of unspecified deep veins of right lower extremity (principal); I10 Essential (primary) hypertension; E66.9 Obesity, unspecified; Z86.16 Personal history of COVID-19; Z86.73 Personal history of transient ischemic attack (TIA), and cerebral infarction without residual deficits; Z79.01 Long term (current) use of anticoagulants; Z79.899 Other long term (current) drug therapy; Z68.35 Body mass index [BMI] 35.0-35.9, adult | CPT/HCPCS: 93971-26-RT; 93971-RT; 99283 ==

== ENCOUNTER 2024-05-17 08:22 | Emergency (ER) | payer BC ==
[2024-05-17] MEDS: Acetaminophen 500 MG Tab PO ONE (09:11)
[2024-05-17] MEDS: oxyCODONE 5 MG Tab PO ONE (09:12)
== END 2024-05-17 10:05 | disposition home or self-care (01) ==
LOC: MW.ED 08:22
DX: S46.001A Unspecified injury of muscle(s) and tendon(s) of the rotator cuff of right shoulder, initial encounter (principal); Z79.01 Long term (current) use of anticoagulants; Z86.73 Personal history of transient ischemic attack (TIA), and cerebral infarction without residual deficits; Z86.16 Personal history of COVID-19; Z68.37 Body mass index [BMI] 37.0-37.9, adult; E66.9 Obesity, unspecified
CPT/HCPCS: 73030; 99283; A9270